=== PATIENT | male | born 1950 | race Caucasian/White ===

== ENCOUNTER → 2021-02-10 09:31 | Outpatient (CLI) | payer MEDICARE, SELFPAY ==
[2021-02-10 10:09] LABS: Basophils # 0.1 K/mm3 (0-0.2); Basophils % 1.2 % (0.1-2.0); Eosinophils # 0.3 K/mm3 (0.0-0.4); Eosinophils % 3.1 % (0.1-12.0); Hematocrit 41.9 % (42.0-52.0); Hemoglobin 14.3 g/dL (14.1-18.0); Lymphocytes # 2.5 K/mm3 (0.7-4.5); Mean Corpuscular HGB Conc 34.2 g/dL (31.8-35.4); Mean Corpuscular Hemoglobin 31.5 pg (27.0-31.2); Mean Corpuscular Volume 92.2 fl (80-94); Mean Platelet Volume 7.5 fl (7.4-10.4); Monocytes # 0.6 K/mm3 (0.1-1.0); Monocytes % 6.2 % (1.7-9.3); Neutrophils % 63.5 % (37.0-80.0); Platelet Count 275 K/mm3 (142-424); Red Blood Count 4.54 M/mm3 (4.60-6.20); Red Cell Distribution Width 13.6 % (11.5-17.5); White Blood Count 9.5 K/mm3 (4.8-10.8)
[2021-02-10 10:35] LABS: Alanine Aminotransferase 35 U/L (12-78); Albumin Level 4.2 g/dl (3.5-5.0); Albumin/Globulin Ratio 1.4 (1.1-1.8); Alkaline Phosphatase 65 U/L (38-126); Anion Gap 14.5 mEq/L (5-15); Aspartate Amino Transferase 27 U/L (17-59); Bilirubin,Total 0.6 mg/dl (0.2-1.3); Blood Urea Nitrogen 24 mg/dl (9-20); Calcium 9.4 mg/dl (8.4-10.2); Carbon Dioxide 28 mmol/L (22.0-30.0); Chloride 102 mmol/L (98-107); Chol/HDL Ratio 4.2 (1-3.5); Cholesterol 207 mg/dl (140-200); Estimated Glomerular Filt Rate 96 ml/min (>60); GFR (African American) 116 ML/MIN (>60); Globulin 2.9 g/dL (1.3-3.2); Glucose 126 mg/dl (74-100); HDL Cholesterol 49 mg/dl (40-60); Potassium 4.5 mmoL/L (3.5-5.1); Sodium 140 mmol/L (136-145); Total Protein,Serum 7.1 g/dl (6.3-8.2); Triglycerides 126 mg/dl (30-150); Uric Acid 8.1 mg/dl (3.5-8.5); VLDL Cholesterol 25 mg/dL (0-40)
[2021-02-10 10:44] LABS: Erythrocyte Sedimentation Rate 25 mm/hr (0-20)
[2021-02-10 10:46] LABS: C-Reactive Protein 12.5 mg/L (0-4)
[2021-02-10 11:06] LABS: Prostate Specific Ag Screen 0.4 ng/ml (0.0-4.0)
== END ==
PROVIDERS: Visit Provider Internal Medicine Adolescent Medicine
DX: Z00.00 Encounter for general adult medical examination without abnormal findings (principal); E78.00 Pure hypercholesterolemia, unspecified; L03.032 Cellulitis of left toe; R73.09 Other abnormal glucose; Z12.5 Encounter for screening for malignant neoplasm of prostate
CPT/HCPCS: 36415; 80053; 80061; 83036; 84550; 85025; 85651; 86140; G0103

== ENCOUNTER → 2021-02-14 13:50 | Outpatient (CLI) | payer MEDICARE, SELFPAY ==
[2021-02-14 14:06] LABS: Basophils # 0.1 K/mm3 (0-0.2); Basophils % 0.6 % (0.1-2.0); Eosinophils # 0.3 K/mm3 (0.0-0.4); Eosinophils % 2.3 % (0.1-12.0); Hematocrit 42.2 % (42.0-52.0); Hemoglobin 14.6 g/dL (14.1-18.0); Lymphocytes # 2.1 K/mm3 (0.7-4.5); Lymphocytes % 19.1 % (10-50); Mean Corpuscular HGB Conc 34.7 g/dL (31.8-35.4); Mean Corpuscular Hemoglobin 32.4 pg (27.0-31.2); Mean Corpuscular Volume 93.4 fl (80-94); Mean Platelet Volume 7.4 fl (7.4-10.4); Monocytes # 0.7 K/mm3 (0.1-1.0); Monocytes % 6.4 % (1.7-9.3); Neutrophils % 71.6 % (37.0-80.0); Platelet Count 295 K/mm3 (142-424); Red Blood Count 4.52 M/mm3 (4.60-6.20); Red Cell Distribution Width 13.5 % (11.5-17.5); White Blood Count 11.2 K/mm3 (4.8-10.8)
[2021-02-14 14:45] LABS: Chloride 102 mmol/L (98-107); Sodium 140 mmol/L (136-145)
[2021-02-14 14:46] LABS: Potassium 4.4 mmoL/L (3.5-5.1)
[2021-02-14 14:49] LABS: Anion Gap 16.4 mEq/L (5-15); Calcium 9.5 mg/dl (8.4-10.2); Carbon Dioxide 26 mmol/L (22.0-30.0); Glucose 116 mg/dl (74-100)
[2021-02-14 14:54] LABS: Blood Urea Nitrogen 26 mg/dl (9-20); Estimated Glomerular Filt Rate 74 ml/min (>60); GFR (African American) 90 ML/MIN (>60)
== END ==
PROVIDERS: Visit Provider Urology
DX: I10 Essential (primary) hypertension (principal); K21.9 Gastro-esophageal reflux disease without esophagitis; L81.9 Disorder of pigmentation, unspecified; M79.675 Pain in left toe(s); M79.89 Other specified soft tissue disorders; R00.0 Tachycardia, unspecified; R22.41 Localized swelling, mass and lump, right lower limb; R94.31 Abnormal electrocardiogram [ECG] [EKG]; Z01.812 Encounter for preprocedural laboratory examination; Z20.822 Contact with and (suspected) exposure to COVID-19
CPT/HCPCS: 36415; 80048; 85025; U0003

== ENCOUNTER 2021-02-16 08:18 | Day surgery (SDC) | payer MEDICARE, SELFPAY ==
[2021-02-16] VITALS (11 sets, daily range): BP systolic 82–152; BP diastolic 45–88; PULSE 88–107; RESP 18–20; TEMP 36.7; O2SAT 91–100; BMI 37.2
--- NOTE | 2021-02-16 07:12 | IR_ITS ---
APPROVED REPORT Patient Location: Outpatient PROCEDURES Catheter placed in the left external iliac artery Left external iliac artery angiogram with unilateral runoff to the left foot Catheter placed in the distal abdominal aorta Distal abdominal aortogram Catheter placement in the thoracic aorta Thoracic aortogram INDICATION Simi claudication class V, Peripheral artery disease, Embolic event to the left foot Informed consent was obtained prior to the procedure. COMPLICATIONS NONE Estimated Blood Loss: LESS THAN 10 ML TECHNIQUE 1% lidocaine used anesthetize right anterior aspect of the right wrist. The right radial artery was accessed via the Salinger technique and a 6 Albanian hydrophilic sheath was placed in the right radial artery. An arterial cocktail using nitroglycerin verapamil and heparin was administered. Initially a JR4 catheter was placed in the transverse aorta and an advantage wire was advanced into the abdominal aorta. The wire was then advanced into the left external iliac artery and the catheter was advanced. Unilateral runoff was performed. The catheter was then pulled back to the distal abdominal aorta and abdominal angiography was performed. Due to the tortuosity was brought back to the thoracic aorta and thoracic aortography was performed. At the end the procedure the apparatus was removed the patient was transferred to the postop holding in stable condition for sheath removal ANGIOGRAPHIC RESULTS The thoracic aorta is tortuous but normal in nonaneurysmal The SMA is patent The CONSUELO is patent Celiac artery is patent The bilateral renal arteries are patent The infrarenal abdominal aorta is moderately tortuous with no evidence of atherosclerosis The bilateral common iliac arteries are normal The bilateral external iliac arteries are normal The bilateral internal iliac arteries are patent The left common femoral artery is normal The left profunda femoris artery is normal Left superficial femoral artery and left popliteal artery are widely patent The anterior tibialis artery and posterior tibialis artery are widely patent with no evidence of atherosclerosis IMPRESSION No evidence of atherosclerotic plaque or aneurysmal dilatation Tortuosity in the infrarenal abdominal aorta which is clinically insignificant at this time PLAN 1. Continue medical management Electronically signed by : Juve Velasco, 02/16/2021 12:41:50
== END 2021-02-16 13:52 | disposition home or self-care (01) ==
LOC: CATHLAB 08:19
PROVIDERS: PCP Internal Medicine Adolescent Medicine; Visit Provider Internal Medicine
DX: L81.9 Disorder of pigmentation, unspecified (principal); M79.675 Pain in left toe(s); M79.89 Other specified soft tissue disorders; R22.41 Localized swelling, mass and lump, right lower limb; I10 Essential (primary) hypertension; M79.671 Pain in right foot; M79.672 Pain in left foot
CPT/HCPCS: 36246; 75625; 75710; 99152; 99153; C1725; C1760; C1769; J1644; Q9966

== ENCOUNTER → 2021-03-01 06:41 | Outpatient (CLI) | payer MEDICARE, SELFPAY ==
--- NOTE | 2021-03-01 06:52 | CT_ITS ---
PROCEDURE: CT FOOT LT WO CON CLINICAL HISTORY: CELLULITIS OF 2ND TOE COMPARISON: XA CL BOLUS KAUR UNILAT AORTA from 02/16/2021 TECHNIQUE: Axial images obtained with sagittal and coronal reformats. All CT scans at the facility use one or more dose reduction, viz: automated exposure control, ma/kV adjustment per patient size (including targeted exams where dose is matched to indication, i.e. head), or iterative reconstruction technique. FINDINGS: Mild widespread osteoarthritic changes of the foot and ankle. Mild spurring involves the medial malleolus. Osteoarthritic change at the navicular cuneiform joint and at the tarsal metatarsal junction with subchondral cystic changes of the 2nd metatarsal tarsal joint. Severe osteoarthritic changes are present at the 1st MTP joint with prominent bony hypertrophy and periarticular calcifications. Prominent bony spurring is present at the distal aspect of the 1st metatarsal and at the distal metatarsal sesamoid region. There are osteoarthritic changes at the DIP joint of the 2nd toe. Soft tissue swelling is present at this region at the DIP joint and distally. There also appears to be some bony cortical erosive change involving the proximal aspect of the distal phalanx of the 2nd toe suspicious for osteomyelitis. No localized fluid collections are evident. IMPRESSION: 1. Soft tissue swelling with cortical erosive change involving the proximal aspect of the distal phalanx of the 2nd toe consistent with osteomyelitis and cellulitis. 2. Osteoarthritic changes as described above. Dictated by: Rick Greene MD 03/01/2021 14:38 Rick Greene MD in [facility] 03/01/2021 14:38
== END ==
PROVIDERS: PCP Internal Medicine Adolescent Medicine; Visit Provider Internal Medicine Adolescent Medicine
DX: L03.032 Cellulitis of left toe (principal)
CPT/HCPCS: 73700

== ENCOUNTER 2021-03-02 15:57 | Outpatient (CLI) | payer MEDICARE, SELFPAY ==
[2021-03-02 16:20] VITALS: BP 122/78; PULSE 68; RESP 20; TEMP 36.9; O2SAT 95
[2021-03-02 16:25] LABS: Chloride 105 mmol/L (98-107); Potassium 4.1 mmoL/L (3.5-5.1); Sodium 140 mmol/L (136-145)
[2021-03-02 16:28] LABS: Anion Gap 16.1 mEq/L (5-15); Blood Urea Nitrogen 27 mg/dl (9-20); Carbon Dioxide 23 mmol/L (22.0-30.0); Estimated Glomerular Filt Rate 60 ml/min (>60); GFR (African American) 73 ML/MIN (>60)
[2021-03-02 16:29] LABS: Calcium 9.7 mg/dl (8.4-10.2); Glucose 130 mg/dl (74-100)
[2021-03-02 16:47] LABS: Creatine Kinase 108 U/L (55-170)
[2021-03-02 16:59] VITALS: BP 116/82; PULSE 113; RESP 18
== END 2021-03-02 17:04 | disposition home or self-care (01) ==
LOC: INF 15:57
PROVIDERS: PCP Internal Medicine Adolescent Medicine; Visit Provider Internal Medicine Adolescent Medicine
DX: L03.032 Cellulitis of left toe (principal); M86.9 Osteomyelitis, unspecified
CPT/HCPCS: 80048; 82550; 96365; J0878

== ENCOUNTER 2021-03-03 07:43 | Outpatient (CLI) | payer MEDICARE, SELFPAY ==
[2021-03-03 09:20] VITALS: BP 113/75; PULSE 85; RESP 14; TEMP 36.8; O2SAT 96
== END 2021-03-03 09:20 | disposition home or self-care (01) ==
LOC: INF 07:45
PROVIDERS: PCP Internal Medicine Adolescent Medicine; Visit Provider Internal Medicine Adolescent Medicine
DX: L03.032 Cellulitis of left toe (principal)
CPT/HCPCS: 96365; G0463

== ENCOUNTER 2021-03-04 09:02 | Outpatient (CLI) | payer MEDICARE, SELFPAY | END 2021-03-04 10:00 | disposition home or self-care (01) | LOC: INF 09:02 | PROVIDERS: PCP Internal Medicine Adolescent Medicine; Visit Provider Internal Medicine Adolescent Medicine | DX: L03.032 Cellulitis of left toe (principal); M86.9 Osteomyelitis, unspecified | CPT/HCPCS: 96365; J0878 ==

== ENCOUNTER 2021-03-05 13:26 | Outpatient (CLI) | payer MEDICARE, SELFPAY ==
[2021-03-05 13:54] VITALS: BP 132/70; PULSE 103; RESP 18; O2SAT 94
--- NOTE | 2021-03-05 13:55 | PC.NURSE ---
1355-pt to local room to have picc line placed per андрейrn
[2021-03-05 14:21] VITALS: BMI 37.0
--- NOTE | 2021-03-05 14:22 | XR_ITS ---
PROCEDURE: XR CHEST PORTABLE PICC PLAC CLINICAL HISTORY: PICC line placement COMPARISON: No exams were available for comparison FINDINGS: Left upper extremity PICC line has been placed. The tip is in good position in the region of the superior vena cava. There are low lung volumes with cardiomegaly and mild right basilar atelectasis. No acute bony abnormalities. IMPRESSION: Left upper extremity PICC line tip in good position in the region of the superior vena cava. Dictated by: Rick Greene MD 03/05/2021 14:52 Rick Greene MD in [facility] 03/05/2021 14:52
--- NOTE | 2021-03-05 14:35 | PC.NURSE ---
1435- pt back to infusion;waiting for rad report on picc placement
--- NOTE | 2021-03-05 15:00 | PC.NURSE ---
1500-picc placement in good position per rad report
[2021-03-05 15:05] VITALS: BP 119/69; PULSE 85; RESP 18
== END 2021-03-05 15:05 | disposition home or self-care (01) ==
LOC: INF 13:26
PROVIDERS: Visit Provider Internal Medicine Adolescent Medicine
DX: L03.032 Cellulitis of left toe (principal); M86.9 Osteomyelitis, unspecified
CPT/HCPCS: 36569; 71045; 96365; C1751; J0878

== ENCOUNTER 2021-03-06 08:10 | Outpatient (CLI) | payer MEDICARE, SELFPAY ==
[2021-03-06 08:34] VITALS: BP 124/73; PULSE 103; RESP 18; O2SAT 95
[2021-03-06 09:30] VITALS: BP 135/79; PULSE 91; RESP 18
== END 2021-03-06 09:30 | disposition home or self-care (01) ==
LOC: INF 08:19
PROVIDERS: PCP Internal Medicine Adolescent Medicine; Visit Provider Internal Medicine Adolescent Medicine
DX: L03.032 Cellulitis of left toe (principal); M86.9 Osteomyelitis, unspecified
CPT/HCPCS: 96365; J0878

== ENCOUNTER 2021-03-07 08:05 | Outpatient (CLI) | payer MEDICARE, SELFPAY ==
[2021-03-07 08:20] VITALS: BP 126/68; PULSE 100; RESP 18; TEMP 36.3; O2SAT 93
[2021-03-07 09:05] VITALS: BP 109/67; PULSE 94; RESP 16
== END 2021-03-07 09:20 | disposition home or self-care (01) ==
LOC: INF 08:09
PROVIDERS: Visit Provider Internal Medicine Adolescent Medicine
DX: L03.032 Cellulitis of left toe (principal); M86.9 Osteomyelitis, unspecified
CPT/HCPCS: 96365; J0878

== ENCOUNTER 2021-03-08 08:10 | Outpatient (CLI) | payer MEDICARE, SELFPAY ==
[2021-03-08 08:40] VITALS: BP 122/73; PULSE 97; RESP 18; O2SAT 94
[2021-03-08 09:30] VITALS: BP 121/71; PULSE 89; RESP 18; TEMP 35.9
== END 2021-03-08 09:50 | disposition home or self-care (01) ==
LOC: INF 08:17
PROVIDERS: Visit Provider Internal Medicine Adolescent Medicine
DX: L03.032 Cellulitis of left toe (principal); M86.9 Osteomyelitis, unspecified
CPT/HCPCS: 96365; J0878

== ENCOUNTER 2021-03-09 08:10 | Outpatient (CLI) | payer MEDICARE, SELFPAY ==
[2021-03-09 08:36] VITALS: BMI 36.1
[2021-03-09 08:40] VITALS: BP 113/67; PULSE 96; RESP 17; TEMP 36.6; O2SAT 98
[2021-03-09 08:53] LABS: Chloride 105 mmol/L (98-107); Potassium 4.1 mmoL/L (3.5-5.1); Sodium 141 mmol/L (136-145)
[2021-03-09 08:56] LABS: Anion Gap 12.1 mEq/L (5-15); Blood Urea Nitrogen 18 mg/dl (9-20); Carbon Dioxide 28 mmol/L (22.0-30.0); Creatine Kinase 91 U/L (55-170); Creatinine Clearance Estimated 119 mL/min (50-200); Estimated Glomerular Filt Rate 74 ml/min (>60); GFR (African American) 90 ML/MIN (>60)
[2021-03-09 08:57] LABS: Calcium 9.2 mg/dl (8.4-10.2); Glucose 138 mg/dl (74-100)
[2021-03-09 09:45] VITALS: BP 127/70; PULSE 78; RESP 17; TEMP 36.6; O2SAT 98
== END 2021-03-09 10:05 | disposition home or self-care (01) ==
LOC: INF 08:21
PROVIDERS: Visit Provider Internal Medicine Adolescent Medicine
DX: L03.032 Cellulitis of left toe (principal); M86.9 Osteomyelitis, unspecified
CPT/HCPCS: 80048; 82550; 96365; J0878

== ENCOUNTER 2021-03-10 08:29 | Outpatient (CLI) | payer MEDICARE, SELFPAY ==
[2021-03-10 08:49] VITALS: BP 115/70; PULSE 101; RESP 20; O2SAT 95; BMI 68.2
== END 2021-03-10 09:21 | disposition home or self-care (01) ==
PROVIDERS: PCP Internal Medicine Adolescent Medicine; Visit Provider Internal Medicine Adolescent Medicine
DX: L03.032 Cellulitis of left toe (principal); M86.9 Osteomyelitis, unspecified
CPT/HCPCS: 96365; J0878

== ENCOUNTER 2021-03-11 08:24 | Outpatient (CLI) | payer MEDICARE, SELFPAY ==
[2021-03-11 08:34] VITALS: BP 114/70; PULSE 95; RESP 18; O2SAT 95; BMI 68.2
== END 2021-03-11 09:12 | disposition home or self-care (01) ==
PROVIDERS: PCP Internal Medicine Adolescent Medicine; Visit Provider Internal Medicine Adolescent Medicine
DX: L03.032 Cellulitis of left toe (principal); M86.9 Osteomyelitis, unspecified
CPT/HCPCS: 96365; J0878

== ENCOUNTER 2021-03-12 10:03 | Outpatient (CLI) | payer MEDICARE, SELFPAY ==
[2021-03-12 10:11] VITALS: BP 119/67; PULSE 103; RESP 20; TEMP 36.6; O2SAT 96
[2021-03-12 11:07] VITALS: BP 115/69; PULSE 97; RESP 20; O2SAT 97
== END 2021-03-12 11:08 | disposition home or self-care (01) ==
LOC: INF 10:03
PROVIDERS: Visit Provider Internal Medicine Adolescent Medicine
DX: L03.032 Cellulitis of left toe (principal); M86.9 Osteomyelitis, unspecified
CPT/HCPCS: 96365; J0878

== ENCOUNTER 2021-03-13 08:05 | Outpatient (CLI) | payer MEDICARE, SELFPAY ==
[2021-03-13 08:20] VITALS: BP 123/95; PULSE 92; RESP 18; TEMP 36.3; O2SAT 94
[2021-03-13 09:25] VITALS: BP 122/72; PULSE 95; RESP 18; TEMP 36.2; O2SAT 94
== END 2021-03-13 09:25 | disposition home or self-care (01) ==
LOC: INF 08:12
PROVIDERS: Visit Provider Internal Medicine Adolescent Medicine
DX: L03.032 Cellulitis of left toe (principal); M86.9 Osteomyelitis, unspecified
CPT/HCPCS: 96365; J0878

== ENCOUNTER 2021-03-14 08:10 | Outpatient (CLI) | payer MEDICARE, SELFPAY ==
[2021-03-14 08:23] VITALS: BP 124/70; PULSE 101; RESP 18; TEMP 36.2; O2SAT 95
[2021-03-14 09:27] VITALS: BP 123/83; PULSE 95; RESP 18
== END 2021-03-14 09:27 | disposition home or self-care (01) ==
LOC: INF 08:16
PROVIDERS: Visit Provider Podiatrist
DX: L03.032 Cellulitis of left toe (principal); M86.9 Osteomyelitis, unspecified
CPT/HCPCS: 96365; J0878

== ENCOUNTER 2021-03-15 08:16 | Outpatient (CLI) | payer MEDICARE, SELFPAY ==
[2021-03-15 08:21] VITALS: BP 136/82; PULSE 89; RESP 18; TEMP 36.4; O2SAT 96
[2021-03-15 09:25] VITALS: BP 126/73; PULSE 85; RESP 16; TEMP 36.4; O2SAT 96
== END 2021-03-15 09:25 | disposition home or self-care (01) ==
LOC: INF 08:16
PROVIDERS: Visit Provider Internal Medicine Adolescent Medicine
DX: L03.032 Cellulitis of left toe (principal); M86.9 Osteomyelitis, unspecified
CPT/HCPCS: 96365; J0878

== ENCOUNTER 2021-03-16 08:10 | Outpatient (CLI) | payer MEDICARE, SELFPAY ==
[2021-03-16 08:31] VITALS: BMI 37.0
[2021-03-16 08:40] VITALS: BP 116/67; PULSE 93; RESP 17; TEMP 36.6; O2SAT 96
[2021-03-16 08:45] LABS: Chloride 101 mmol/L (98-107); Potassium 3.7 mmoL/L (3.5-5.1); Sodium 137 mmol/L (136-145)
[2021-03-16 08:48] LABS: Blood Urea Nitrogen 14 mg/dl (9-20); Creatine Kinase 1322 U/L (55-170); Creatinine Clearance Estimated 119 mL/min (50-200); Estimated Glomerular Filt Rate 74 ml/min (>60); GFR (African American) 90 ML/MIN (>60)
[2021-03-16 08:49] LABS: Anion Gap 10.7 mEq/L (5-15); Calcium 8.8 mg/dl (8.4-10.2); Carbon Dioxide 29 mmol/L (22.0-30.0); Glucose 228 mg/dl (74-100)
[2021-03-16 10:02] VITALS: BP 124/73; PULSE 89; RESP 17; TEMP 36.4; O2SAT 98
--- NOTE | 2021-03-16 12:33 | PC.NURSE ---
noticed extremely elevated CPK on lab reports. called and reported the result to Dr. Stacy's nurse and faxed the report to the office as requested.
== END 2021-03-16 10:05 | disposition home or self-care (01) ==
LOC: INF 08:22
PROVIDERS: Visit Provider Internal Medicine Adolescent Medicine
DX: L03.032 Cellulitis of left toe (principal); M86.9 Osteomyelitis, unspecified
CPT/HCPCS: 80048; 82550; 96365; J0878

== ENCOUNTER 2021-03-17 08:31 | Outpatient (CLI) | payer MEDICARE, SELFPAY ==
--- NOTE | 2021-03-17 08:38 | PC.NURSE ---
arrive approx 0835
[2021-03-17 08:56] VITALS: BP 105/57; PULSE 82; RESP 18; TEMP 36.9; O2SAT 96
[2021-03-17 09:29] VITALS: BP 129/80; PULSE 101; RESP 18; TEMP 36.6; O2SAT 97
== END 2021-03-17 09:33 | disposition home or self-care (01) ==
LOC: INF 08:32
PROVIDERS: PCP Internal Medicine Adolescent Medicine; Visit Provider Internal Medicine Adolescent Medicine
DX: L03.032 Cellulitis of left toe (principal); M86.9 Osteomyelitis, unspecified
CPT/HCPCS: 96365; J0878

== ENCOUNTER 2021-03-18 08:25 | Outpatient (CLI) | payer MEDICARE, SELFPAY ==
[2021-03-18 08:40] VITALS: BP 127/68; PULSE 98; RESP 20; TEMP 36.4; O2SAT 97
[2021-03-18 09:06] LABS: Blood Urea Nitrogen 21 mg/dl (9-20); Calcium 8.7 mg/dl (8.4-10.2); Carbon Dioxide 28 mmol/L (22.0-30.0); Chloride 102 mmol/L (98-107); Creatine Kinase 1320 U/L (55-170); Estimated Glomerular Filt Rate 84 ml/min (>60); GFR (African American) 101 ML/MIN (>60); Glucose 188 mg/dl (74-100); Sodium 138 mmol/L (136-145)
[2021-03-18 09:15] LABS: Anion Gap 11.8 mEq/L (5-15); Potassium 3.8 mmoL/L (3.5-5.1)
--- NOTE | 2021-03-18 09:45 | PC.NURSE ---
0840 Notified by Ana Paula Alegre that pt CPK was elevated on 03/16. Roel to check with Dr Dumont if he wishes to proceed with infusion. CPK/CMP drawn at this time as well. 0920 ok to proceed with infusion per Ana Paula Alegre and Dr Dumont.
== END 2021-03-18 10:18 | disposition home or self-care (01) ==
PROVIDERS: PCP Internal Medicine Adolescent Medicine; Visit Provider Internal Medicine Adolescent Medicine
DX: L03.032 Cellulitis of left toe (principal); M86.9 Osteomyelitis, unspecified
CPT/HCPCS: 80048; 82550; 96365; J0878

== ENCOUNTER 2021-03-19 08:10 | Outpatient (CLI) | payer MEDICARE, SELFPAY ==
[2021-03-19 08:47] VITALS: BP 139/91; PULSE 99; RESP 18; O2SAT 95
[2021-03-19 09:45] VITALS: BP 128/72; PULSE 99; RESP 18
== END 2021-03-19 09:45 | disposition home or self-care (01) ==
LOC: INF 08:20
PROVIDERS: Visit Provider Internal Medicine Adolescent Medicine
DX: L03.032 Cellulitis of left toe (principal); M86.9 Osteomyelitis, unspecified
CPT/HCPCS: 96365; J0878

== ENCOUNTER 2021-03-20 14:15 | Outpatient (CLI) | payer MEDICARE, SELFPAY ==
[2021-03-20 14:18] VITALS: BMI 37.0
[2021-03-20 14:37] LABS: Anion Gap 12.3 mEq/L (5-15); Blood Urea Nitrogen 17 mg/dl (9-20); Calcium 8.9 mg/dl (8.4-10.2); Carbon Dioxide 28 mmol/L (22.0-30.0); Chloride 102 mmol/L (98-107); Creatine Kinase 999 U/L (55-170); Creatinine Clearance Estimated 119 mL/min (50-200); Estimated Glomerular Filt Rate 84 ml/min (>60); GFR (African American) 101 ML/MIN (>60); Glucose 177 mg/dl (74-100); Potassium 4.3 mmoL/L (3.5-5.1); Sodium 138 mmol/L (136-145)
[2021-03-20 15:00] VITALS: BP 125/72; PULSE 107; RESP 18; O2SAT 95
[2021-03-20 15:55] VITALS: BP 132/75; PULSE 105; RESP 18
== END 2021-03-20 15:55 | disposition home or self-care (01) ==
LOC: INF 14:17
PROVIDERS: Visit Provider Internal Medicine Adolescent Medicine
DX: L03.032 Cellulitis of left toe (principal); M86.9 Osteomyelitis, unspecified
CPT/HCPCS: 80048; 82550; 96365; J0878

== ENCOUNTER 2021-03-21 08:10 | Outpatient (CLI) | payer MEDICARE, SELFPAY ==
[2021-03-21 08:26] VITALS: BP 136/71; PULSE 104; RESP 18; TEMP 36.1; O2SAT 94
[2021-03-21 15:40] VITALS: BP 136/72; PULSE 103; RESP 18; O2SAT 95
== END 2021-03-21 09:32 | disposition home or self-care (01) ==
LOC: INF 08:18
PROVIDERS: Visit Provider Internal Medicine Adolescent Medicine
DX: L03.032 Cellulitis of left toe (principal); M86.9 Osteomyelitis, unspecified
CPT/HCPCS: 96365; J0878

== ENCOUNTER 2021-03-22 08:19 | Outpatient (CLI) | payer MEDICARE, SELFPAY ==
[2021-03-22 08:41] VITALS: BP 138/62; PULSE 89; RESP 18; TEMP 36.6; O2SAT 95
[2021-03-22 09:30] VITALS: BP 128/72; PULSE 92; RESP 16; TEMP 36.6; O2SAT 95
== END 2021-03-22 09:40 | disposition home or self-care (01) ==
LOC: INF 08:19
PROVIDERS: Visit Provider Internal Medicine Adolescent Medicine
DX: L03.032 Cellulitis of left toe (principal); M86.9 Osteomyelitis, unspecified
CPT/HCPCS: 96365; J0878

== ENCOUNTER 2021-03-23 08:20 | Outpatient (CLI) | payer MEDICARE, SELFPAY ==
[2021-03-23 08:28] VITALS: BMI 37.0
[2021-03-23 08:50] LABS: Chloride 105 mmol/L (98-107); Potassium 4.1 mmoL/L (3.5-5.1); Sodium 140 mmol/L (136-145)
[2021-03-23 08:51] VITALS: BP 118/86; PULSE 103; RESP 17; TEMP 36.7; O2SAT 96
[2021-03-23 08:53] LABS: Anion Gap 11.1 mEq/L (5-15); Blood Urea Nitrogen 20 mg/dl (9-20); Calcium 9.1 mg/dl (8.4-10.2); Carbon Dioxide 28 mmol/L (22.0-30.0); Creatine Kinase 1106 U/L (55-170); Creatinine Clearance Estimated 119 mL/min (50-200); Estimated Glomerular Filt Rate 84 ml/min (>60); GFR (African American) 101 ML/MIN (>60); Glucose 148 mg/dl (74-100)
[2021-03-23 09:40] VITALS: BP 122/81; PULSE 91; RESP 17; TEMP 36.8; O2SAT 97
== END 2021-03-23 09:45 | disposition home or self-care (01) ==
LOC: INF 08:26
PROVIDERS: Visit Provider Internal Medicine Adolescent Medicine
DX: L03.032 Cellulitis of left toe (principal); M86.9 Osteomyelitis, unspecified
CPT/HCPCS: 80048; 82550; 96365; J0878

== ENCOUNTER 2021-03-24 08:21 | Outpatient (CLI) | payer MEDICARE, SELFPAY ==
[2021-03-24 08:43] VITALS: BP 118/78; PULSE 107; RESP 18; O2SAT 94
== END 2021-03-24 09:20 | disposition home or self-care (01) ==
LOC: INF 08:22
PROVIDERS: PCP Internal Medicine Adolescent Medicine; Visit Provider Internal Medicine Adolescent Medicine
DX: L03.032 Cellulitis of left toe (principal); M86.9 Osteomyelitis, unspecified
CPT/HCPCS: 96365; J0878

== ENCOUNTER 2021-03-25 08:13 | Outpatient (CLI) | payer MEDICARE, SELFPAY ==
[2021-03-25 08:40] VITALS: BP 114/65; PULSE 98; RESP 18; O2SAT 95
[2021-03-25 08:44] VITALS: BMI 37.2
[2021-03-25 09:01] LABS: Chloride 104 mmol/L (98-107); Sodium 140 mmol/L (136-145)
[2021-03-25 09:04] LABS: Blood Urea Nitrogen 24 mg/dl (9-20); Calcium 9.3 mg/dl (8.4-10.2); Carbon Dioxide 28 mmol/L (22.0-30.0); Creatine Kinase 1032 U/L (55-170); Creatinine Clearance Estimated 85 mL/min (50-200); Estimated Glomerular Filt Rate 84 ml/min (>60); GFR (African American) 101 ML/MIN (>60); Glucose 178 mg/dl (74-100)
== END 2021-03-25 09:22 | disposition home or self-care (01) ==
LOC: INF 08:14
PROVIDERS: PCP Internal Medicine Adolescent Medicine; Visit Provider Internal Medicine Adolescent Medicine
DX: L03.032 Cellulitis of left toe (principal); M86.9 Osteomyelitis, unspecified
CPT/HCPCS: 80048; 82550; 96365; J0878

== ENCOUNTER 2021-03-26 08:20 | Outpatient (CLI) | payer MEDICARE, SELFPAY ==
[2021-03-26 08:50] VITALS: BP 137/78; PULSE 98; RESP 18; TEMP 36.3; O2SAT 96
[2021-03-26 09:55] VITALS: BP 140/73; PULSE 97; RESP 18
== END 2021-03-26 09:55 | disposition home or self-care (01) ==
LOC: INF 08:20
PROVIDERS: Visit Provider Internal Medicine Adolescent Medicine
DX: L03.032 Cellulitis of left toe (principal); M86.9 Osteomyelitis, unspecified
CPT/HCPCS: 96365; J0878

== ENCOUNTER 2021-03-27 08:29 | Outpatient (CLI) | payer MEDICARE, SELFPAY ==
[2021-03-27 08:30] VITALS: BMI 37.0
[2021-03-27 08:46] VITALS: BP 130/93; PULSE 102; RESP 18; TEMP 36.7; O2SAT 96
[2021-03-27 08:56] LABS: Chloride 105 mmol/L (98-107); Sodium 141 mmol/L (136-145)
[2021-03-27 08:59] LABS: Blood Urea Nitrogen 21 mg/dl (9-20); Carbon Dioxide 28 mmol/L (22.0-30.0); Creatine Kinase 920 U/L (55-170); Creatinine Clearance Estimated 119 mL/min (50-200); Estimated Glomerular Filt Rate 84 ml/min (>60); GFR (African American) 101 ML/MIN (>60)
[2021-03-27 09:00] LABS: Calcium 9.3 mg/dl (8.4-10.2); Glucose 164 mg/dl (74-100)
[2021-03-27 09:38] VITALS: BP 119/63; PULSE 93; RESP 18; O2SAT 97
== END 2021-03-27 09:38 | disposition home or self-care (01) ==
LOC: INF 08:29
PROVIDERS: Visit Provider Internal Medicine Adolescent Medicine
DX: L03.032 Cellulitis of left toe (principal); M86.9 Osteomyelitis, unspecified
CPT/HCPCS: 80048; 82550; 96365; J0878

== ENCOUNTER 2021-03-28 08:33 | Outpatient (CLI) | payer MEDICARE, SELFPAY ==
[2021-03-28 08:33] VITALS: BP 133/60; PULSE 103; RESP 18; TEMP 36.1; O2SAT 96
[2021-03-28 09:33] VITALS: BP 116/74; PULSE 98; RESP 18
== END 2021-03-28 09:33 | disposition home or self-care (01) ==
LOC: INF 08:40
PROVIDERS: Visit Provider Internal Medicine Adolescent Medicine
DX: L03.032 Cellulitis of left toe (principal); M86.9 Osteomyelitis, unspecified
CPT/HCPCS: 96365; J0878

== ENCOUNTER 2021-03-29 08:15 | Outpatient (CLI) | payer MEDICARE, SELFPAY ==
[2021-03-29 08:24] VITALS: BMI 37.0
[2021-03-29 08:45] VITALS: BP 127/78; PULSE 97; RESP 18; O2SAT 93
[2021-03-29 09:02] LABS: Chloride 104 mmol/L (98-107); Potassium 4.1 mmoL/L (3.5-5.1); Sodium 141 mmol/L (136-145)
[2021-03-29 09:05] LABS: Anion Gap 13.1 mEq/L (5-15); Blood Urea Nitrogen 19 mg/dl (9-20); Calcium 9.1 mg/dl (8.4-10.2); Carbon Dioxide 28 mmol/L (22.0-30.0); Creatine Kinase 1238 U/L (55-170); Creatinine Clearance Estimated 119 mL/min (50-200); Estimated Glomerular Filt Rate 84 ml/min (>60); GFR (African American) 101 ML/MIN (>60); Glucose 145 mg/dl (74-100)
[2021-03-29 09:20] VITALS: BP 110/74; PULSE 93; RESP 16
== END 2021-03-29 09:45 | disposition home or self-care (01) ==
LOC: INF 08:20
PROVIDERS: Visit Provider Internal Medicine Adolescent Medicine
DX: L03.032 Cellulitis of left toe (principal); M86.9 Osteomyelitis, unspecified
CPT/HCPCS: 80048; 82550; 96365; G0463; J0878

== ENCOUNTER → 2023-07-29 23:00 | Outpatient (CLI) | payer MEDICARE, SELFPAY | PROVIDERS: PCP Student in an Organized Health Care Education/Training Program; Visit Provider Student in an Organized Health Care Education/Training Program | DX: R05.9 Cough, unspecified (principal) | CPT/HCPCS: 87635 ==

== ENCOUNTER 2023-12-23 10:38 | Outpatient (CLI) | payer MEDICARE, SELFPAY ==
--- NOTE | 2023-12-23 10:44 | XR_ITS ---
FINAL REPORT CLINICAL HISTORY: RT KNEE PAIN,SWELLING COMPARISON: None FINDINGS: RIGHT KNEE 3 views of the right knee were obtained. There is no acute fracture or dislocation. There is severe tricompartmental osteoarthritic disease. There is a large joint effusion. Soft tissues are unremarkable. IMPRESSION: Large joint effusion and degenerative change without acute bony abnormality. Reviewed, Interpreted and Dictated by Denzel Lange MD Transcribed by Amanda Rojas Authenticated and [facility]
== END 2023-12-23 23:59 | disposition home or self-care (01) ==
LOC: RAD 10:39
PROVIDERS: PCP Internal Medicine Adolescent Medicine; Visit Provider Nurse Practitioner Family
DX: M25.561 Pain in right knee (principal); M25.461 Effusion, right knee; G89.29 Other chronic pain
CPT/HCPCS: 73562

== ENCOUNTER 2024-09-08 09:28 | Outpatient (CLI) | payer MEDICARE, SELFPAY ==
--- NOTE | 2024-09-08 09:33 | XR_ITS ---
FINAL REPORT CLINICAL HISTORY: Rt Knee Pain..no trauma COMPARISON: None FINDINGS: RIGHT KNEE: 3 views of the right knee demonstrate no acute fracture or dislocation. There is severe tricompartment degenerative change present, with multiple joint bodies. The largest joint body is in the lateral portion of the knee, measuring up to 23 mm in size. A large joint effusion is present. IMPRESSION: Severe degenerative change as described, without acute bony abnormality. Reviewed, Interpreted and Dictated by Denzel Lange MD Transcribed by Amanda Hernandez Authenticated and [facility]
== END 2024-09-08 23:59 | disposition home or self-care (01) ==
LOC: RAD 09:29
PROVIDERS: PCP Internal Medicine Adolescent Medicine; Visit Provider Physician Assistant
DX: M25.561 Pain in right knee (principal)
CPT/HCPCS: 73562

== ENCOUNTER 2024-09-23 09:00 | Outpatient (RCR) | payer MEDICARE, SELFPAY ==
--- NOTE | 2024-09-14 17:22 | HMH.PTOPEV ---
PT Outpatient Evaluation Rehab PT Outpatient Evaluation Start: 09/14/24 16:32 Freq: Status: Active Protocol: Document 09/14/24 16:32 KACI (Rec: 09/14/24 17:21 KACI [id number]) E-signed By Ronald Murphy, PT Outpatient Therapy Subjective History Subjective History Patient is a 74 year old male presenting to outpatient PT with reports of chronic R knee pain. Symptoms of insidious onset starting approx 5 years ago. Most recent imaging indicates severe degenerative changes of the R knee. Main complaint is decreased RLE mobility. Other comorbidities include hx of diabetes and HTN. Other comorbidities include hx of diabetes and HTN. New diagnosis of cancer in past 12 No months? Chief Complaint Pain,Stiff,Clicks,Gives out/ Unstable Symptom Type Ache Symptoms Relieved By Rest/Positioning Symptoms Aggravated By Standing,Bending/Stooping, Physical Activity Prior Functional Limitations None Current Functional Limitations Housework,Standing,Walking, Stairs Symptom Description Intermittent Level of pain today (0-10) 0 Pain scale - at its best (0-10) 0 Pain scale - at its worst (0-10) 5 Hip/Knee Eval Gait Observation General Gait Pattern Observation Antalgic Gait,Decrease Stride Lngth (R) Palpation Tenderness right Knee Palpation Finding Tenderness Knee Palpation Overall Comment MJL 2/4 MMT Hip Flexion Strength Grade 4 Good Hip Abduction Strength Grade 4- Good- Hip Adduction Strength Grade 4- Good- Hip Extension Strength Grade 4- Good- Hip External Rotation Strength Grade 4 Good Hip Internal Rotation Strength Grade 4 Good Knee Extension Strength Grade 4 Good Knee Flexion Strength Grade 5 Normal ROM Hip ROM Reason Not Measured Within Functional Limits Knee Extension Active Range of Motion ( -14 degrees) Knee Flexion Active Range of Motion ( WNL degrees) Special Tests Knee Anterior Carlos A Test Negative Right Knee Pivot Shift Test Negative Right Knee Valgus Stress Test Negative Right Knee Varus Stress Test Negative Right Knee Lola Test Positive Right Lower Extremity Functional Index Activities Today, do you or would you have any difficulty at all with: a.Any of your usual work, housework or Moderate difficulty school activities b. Your usual hobbies, recreational or Moderate difficulty sporting activities c. Getting into or out of the bath Extreme difficulty or unable to perform activity d. Walking between rooms Extreme difficulty or unable to perform activity e. Putting on your shoes or socks Quite a bit of difficulty f. Squatting Moderate difficulty g. Lifting an object, like a bag of Extreme difficulty or unable groceries from the floor to perform activity h. Performing light activities around Quite a bit of difficulty your home i. Performing heavy activities around Quite a bit of difficulty your home j. Getting into or out of a car Quite a bit of difficulty k. Walking 2 blocks A little bit of difficulty l. Walking a mile No difficulty m. Going up or down 10 stairs (about 1 A little bit of difficulty flight of stairs) n. Standing for 1 hour No difficulty o. Sitting for 1 hour Quite a bit of difficulty p. Running on even ground No difficulty q. Running on uneven ground No difficulty r. Making sharp turns while running fast A little bit of difficulty s. Hopping Moderate difficulty t. Rolling over in bed Quite a bit of difficulty LEFI Score Lower Extremity Functional Index Score 39 Outpatient Therapy Assessment Impairments Problems/Impairmments Palpation Tenderness,Impaired Range of Motion,Impaired Strength,Impaired Walking, Impaired Standing,Impaired Sitting,Impaired Household Care,Impaired Stair Climbing, Impaired Incline Stepping, Impaired Stepping on Uneven Surface,Impaired Squatting, Impaired Recreational Activities,Impaired Work Activities,Subjective C/O Pain Prognosis Rehab Potential Good Clinical Impression Consistent with Diagnosis Yes Short Term Goals Number of Weeks 2 Decrease Subjective C/O Pain Yes: 11/01 at worst Patient to be Ind w/ HEP Yes Alf Goals Number of Weeks 4-6 Decreased Palpation Tenderness Yes: 1/ Increase Range of Motion Yes: WNL Increase Strength Yes: 5/5 RLE Increase Ability to Walk Yes: 30 min without difficulty Increase Ability to Stand Yes: Improve Ability For Household Care Yes Improve Ability to Climb Stairs Yes: 1 flight up/down without difficulty Improve LEFI Score Yes: >60 Decrease Subjective C/O Pain Yes: 110 at worst Outpatient Therapy Plan of Care Treatment Plan May Include Therapeutic Exercise Including Home Yes Exercise Program Manual Therapy Techniques Yes Neuromuscular Re-education Yes Therapeutic Activities to Return to Yes Previous Functional/Work Level Gait Training Yes ADL/Self Care Education Yes Dry Needling Yes Thermal Modalities Yes Electrical Stimulation Yes Ultrasound/Phonophoresis Yes Iontophoresis Yes Orthotics/Bracing/Splinting Yes Vasopneumatic Compression Pump Yes Massage Yes Eval/Re-Eval Yes Frequency Times per week 2-3 Duration Number of Weeks 4-6 Addendums This patient is a candidate for social No or vocational rehab? Patient/Guardian verbally acknowledges Yes understanding of treatment program and consents to further treatment? Patient/Guardian verbally acknowledges Yes understanding of diagnosis, prognosis and goals for treatment? Eval Complexity PT Charges 71792 - Moderate Complexity Shoulder/Elbow Eval Shoulder Objective Measurements Elbow Objective Measurements PHYSICIAN CERTIFICATION: I certify the specified therapy services for Sridhar Acosta are required, authorized, and reviewed every 30 days.
== END 2024-09-23 23:59 | disposition home or self-care (01) ==
LOC: PT 09:00
PROVIDERS: Visit Provider Physician Assistant
DX: M25.561 Pain in right knee (principal)
CPT/HCPCS: 97110; 97163; 97530

== ENCOUNTER 2024-10-07 09:00 | Outpatient (RCR) | payer MEDICARE, SELFPAY | END 2024-10-07 23:59 | disposition home or self-care (01) | LOC: PT 09:00 | PROVIDERS: Visit Provider Physician Assistant | DX: M25.561 Pain in right knee (principal) | CPT/HCPCS: 97110; 97530 ==

== ENCOUNTER 2024-11-17 08:00 | Outpatient (RCR) | payer MEDICARE, SELFPAY ==
--- NOTE | 2024-11-02 11:25 | HMH.RHREAS ---
Rehab Reassessment Rehab OP Re-assessment Start: 11/02/24 09:10 Freq: Status: Active Protocol: Document 11/02/24 11:04 PHORTERRANCE (Rec: 11/02/24 11:25 PHORNE [id number]) E-signed By Yoel Laam, PT Lower Extremity Functional Index Activities Today, do you or would you have any difficulty at all with: a.Any of your usual work, housework or Moderate difficulty school activities b. Your usual hobbies, recreational or Quite a bit of difficulty sporting activities c. Getting into or out of the bath No difficulty d. Walking between rooms No difficulty e. Putting on your shoes or socks No difficulty f. Squatting Moderate difficulty g. Lifting an object, like a bag of No difficulty groceries from the floor h. Performing light activities around A little bit of difficulty your home i. Performing heavy activities around A little bit of difficulty your home j. Getting into or out of a car No difficulty k. Walking 2 blocks Moderate difficulty l. Walking a mile Quite a bit of difficulty m. Going up or down 10 stairs (about 1 A little bit of difficulty flight of stairs) n. Standing for 1 hour Quite a bit of difficulty o. Sitting for 1 hour No difficulty p. Running on even ground Moderate difficulty q. Running on uneven ground Moderate difficulty r. Making sharp turns while running fast Moderate difficulty s. Hopping A little bit of difficulty t. Rolling over in bed Quite a bit of difficulty LEFI Score Lower Extremity Functional Index Score 52 Rehab Re-assessment Subjective Subjective Pt reports he has not been able to attend PT in 25 days due to having the flu and then having difficulty getting back on the schedule. I can definitely tell a difference in the pain from not being here and working out. He reports pain at worst in the R knee is 4/10. Objective Objective Notes Pain: R knee at worst 4/10. MMT R LE: HIP FLEX 4+/5, HIP ABD 4+/5, HIP ER 4+/5, HIP IR 4+/5, KNEE EXT 4+/5, KNEE FLEX 5/5. AROM R Knee: 6-130 deg. (Pt reports prior injury has prevented full R knee extension for many years) TTP: R knee 0/4 LEFS: 39 on IE vs 52 this date . Assessment Progress Assessment Progressing as Expected Assessment Notes Pt has shown significant improvements in R knee strength, ROM, and pain. However, he continues to have difficulty with ascending/ descending stairs and needs to further increase R LE strength. Skilled therapy remains indicated to improve these identified deficits and aid pt return to PLOF. Patient goals met ST/2 LT/9 Plan Plan Continue per initial POC. Frequency of Therapy 2-3 x/wk Duration of therapy 4 wks Time and Billing Re-Eval Time 11 Re-Eval Billing Units 0 Charge for PT reassessment? No PHYSICIAN CERTIFICATION: I certify the specified therapy services for Sridhar Acosta are required, authorized, and reviewed every 30 days.
== END 2024-11-17 23:59 | disposition home or self-care (01) ==
LOC: PT 08:00
PROVIDERS: Visit Provider Physician Assistant
DX: M25.561 Pain in right knee (principal)
CPT/HCPCS: 97110; 97530

== ENCOUNTER 2024-12-07 08:00 | Outpatient (RCR) | payer MEDICARE, SELFPAY ==
--- NOTE | 2024-11-30 15:12 | HMH.RHREAS ---
Rehab Reassessment Rehab OP Re-assessment Start: 11/23/24 08:54 Freq: Status: Active Protocol: Document 11/30/24 15:03 PHORNE (Rec: 11/30/24 15:12 PHORNE [id number]) E-signed By Yoel Lama, PT Lower Extremity Functional Index Activities Today, do you or would you have any difficulty at all with: a.Any of your usual work, housework or A little bit of difficulty school activities b. Your usual hobbies, recreational or A little bit of difficulty sporting activities c. Getting into or out of the bath No difficulty d. Walking between rooms No difficulty e. Putting on your shoes or socks A little bit of difficulty f. Squatting Moderate difficulty g. Lifting an object, like a bag of No difficulty groceries from the floor h. Performing light activities around No difficulty your home i. Performing heavy activities around No difficulty your home j. Getting into or out of a car A little bit of difficulty k. Walking 2 blocks Moderate difficulty l. Walking a mile Moderate difficulty m. Going up or down 10 stairs (about 1 Moderate difficulty flight of stairs) n. Standing for 1 hour Quite a bit of difficulty o. Sitting for 1 hour No difficulty p. Running on even ground Quite a bit of difficulty q. Running on uneven ground Quite a bit of difficulty r. Making sharp turns while running fast Moderate difficulty s. Hopping A little bit of difficulty t. Rolling over in bed No difficulty LEFI Score Lower Extremity Functional Index Score 56 Rehab Re-assessment Subjective Subjective States he has never really had pain, just a discomfort, but it's much better now that he's back on a routine with PT and HEP. Is going on vacation to [place] next week and will be gone for a couple weeks. Reports that he will see how his vacation goes, keep up with HEP, and then decide if he needs to come back to continue PT. Objective Objective Notes Pain: R knee at worst 2-3/10. MMT R LE: HIP FLEX 4/5, HIP ABD 4+/5, HIP ER 4+/5, HIP IR 4+/5, KNEE EXT 5/5, KNEE FLEX 5/5. AROM R Knee: 3-130 deg. (Pt reports prior injury has prevented full R knee extension for many years) TTP: R knee 0/4 LEFS: 39 on IE vs 56 this date . Assessment Progress Assessment Progressing as Expected Assessment Notes Pt continues to show increased overall R LE strength, but has shown minimal changes in R knee AROM since previous reassessment. He continues to decrease pain at worst and continues to improve LEFS score on the R LE. Skilled therapy remains indicated to improve R LE strength in order to facilitate increased standing activities and improved ambulation. Patient goals met ST/2 LT/9 Plan Plan Continue per initial POC. Frequency of Therapy 1-2 x/wk Duration of therapy 2-3 wks Time and Billing Re-Eval Time 11 Re-Eval Billing Units 0 Charge for PT reassessment? No PHYSICIAN CERTIFICATION: I certify the specified therapy services for Sridhar Acosta are required, authorized, and reviewed every 30 days.
== END 2024-12-07 23:59 | disposition home or self-care (01) ==
LOC: PT 08:00
PROVIDERS: Visit Provider Physician Assistant
DX: M25.561 Pain in right knee (principal)
CPT/HCPCS: 97110; 97530

== ENCOUNTER 2025-04-28 12:43 | Outpatient (CLI) | payer MEDICARE, SELFPAY ==
--- OUTSIDE RECORDS SUMMARY | 2024-11-27 17:30 | XMS_ITS ---
Author Organization [facility] Address [address] [facility] [address] [place] [address] Care Team Providers Care Bakery Helper Name Role Phone Lacy Jimenez Primary Care Provider [phone] LACY Jimenez APRN Unavailable Unavailable Migration, Provider Unavailable Unavailable REASON FOR VISIT [facility] To [facility] Conversion Encounter Medications Medication SIG (Take, Route, Frequency, Duration) Notes Start Date End Date Status Doxycycline Monohydrate 100 MG 1 cap(s) orally 2 times a day; Duration: 7 days 10/15/2024 Active metFORMIN HCl ER (OSM) 500 MG 1 tab(s) orally at night; Duration: 90 days 01/27/2023 Active Centrum Men - 1 tab(s) orally once a day prn Active Lisinopril-hydroCHLOROthiaz loki 20-12.5 MG 1 tab(s) orally once a day; Duration: 90 days Active Atorvastatin Calcium 20 MG 1 tab(s) oral ly at night; Duration: 90 days 01/27/2023 Active Encounters Encounter Location Date Provider Diagnosis [facility] [address] [facility] [address] [place] [id number] 11/27/2024 Provider Migration Bronchitis J40 Assessments Encounter Date Diagnosis (ICD Code) Assessment Notes Treatment Notes Treatment Clinical Notes Section Notes 11/27/2024 Bronchitis (ICD-10 - J40) Plan Of Treatment Medication Medication Name Sig Start Date Stop Date Notes Doxycycline Monohydrate 100 MG 1 cap(s) orally 2 times a day; Duration: 7 days 10/15/2024 Next Appt Details Provider Name:Radha Conway ce, 05/09/2025 08:15:00 AM, [address], [address], [place], [address], Progress Notes * Lois ACOSTAOB:1950 (75 yo M)Acc No.[id number]:11/27/2024 Patient: Sridhar JONES Provider: Miles Caraballo :1950 A ge:74 Y S ex:Male Date:11/27/2024 Address:[place] [address], [place], [id number] Pcp:Lacy Jimenez Subjective: * Chief Complaints: * 1 . Multum To Medispan Conversion Encounter. * Medical History: * Medications: T aking Centrum Men - Tablet 1 tab(s) orally once a day , Notes to Pharmacist: prn, Taking Atorvastatin Calcium 20 MG Tablet 1 tab(s) orally at night , Taking Lisinopril-hydroCHLOROthiazide 20-12.5 MG Tablet 1 tab(s) orally once a day , Taking metFORMIN HCl ER (OSM) 500 MG Tablet Extended Release 24 Hour 1 tab(s) orally at night Objective: * Vitals: Assessment: * Assessment: 1. B deejay - Talita (Primary) Plan: * Treatment: * * Electronic signature of Prov ider Migration on 04/28/2025 at 12:45 PM EDT Sign off status: Pending * Provider: Miles german Migration Date: 0 11/27/2024 Generated for Candido brennan/Deonna/Jamarcus on: 0 04/28/2025 12:45 PM EDT
--- OUTSIDE RECORDS SUMMARY | 2025-03-29 04:15 | XMS_ITS ---
Author Organization [facility] Address [address] [place] [address] Care Team Providers Care Manager Strategy Name Role Phone Lacy Jimenez Primary Care Provider LACY Jimenez APRN Unavailable Unavailable Radha Yarbrough Unavailable [phone] Allergies No Known Allergies Results Component Value Reference Range Notes Microalbumin (In-House) Reviewed date:03/29/2025 04:56:42 PM Interpretation: Performing Lab: Notes/Report: ALB 80 mg/L CRE 200 mg/dL A:C 30-300 mg/g LIPID PANEL, STANDARD (7600) Reviewed date:04/01/2025 05:26:13 PM Interpretation: Performing Lab:[facility], [facility] [address] [facility], [place] [id number] Daniel Lozano Notes/Report: CHOLESTEROL, TOTAL 127 <200 mg/dL HDL CHOLESTEROL 43 > OR = 40 mg/dL TRIGLYCERIDES 136 <150 mg/dL LDL-CHOLESTEROL 62 Reference range: <100 Desirable range <100 mg/dL for primary prevention; <70 mg/dL for patients with CHD or diabetic patients with > or = 2 CHD risk factors. LDL-C is now calculated using the Yordan calculation, which is a validated novel method providing better accuracy than the Friedewald equation in the estimation of LDL-C. Ulices FRY et al. VERONICA. 2013;310(19): 4533-0506 (http://education.Aquacue/faq/REZ295) CHOL/HDLC RATIO 3.0 <5.0 (calc) NON HDL CHOLESTEROL 84 <130 mg/dL (calc) For patients with diabetes plus 1 major ASCVD risk factor, treating to a non-HDL-C goal of <100 mg/dL (LDL-C of <70 mg/dL) is considered a therapeutic option. COMPREHENSIVE METABOLIC PANE L (19861) Reviewed date:04/01/2025 05:26:13 PM Interpretation: Performing Lab:[facility]HA E [address] [facility], [id number] Daniel Lozano Notes/Report: GLUCOSE 244 65-99 mg/dL Fasting reference interval For someone without known diabetes, a glucose value >125 mg/dL indicates that they may have diabetes and this should be confirmed with a follow-up test. UREA NITROGEN (BUN) 19 7-25 mg/dL CREATININE 0.94 0.70-1.28 mg/dL EGFR 86 > OR = 60 mL/min/1.73m2 BUN/CREATININE RATIO SEE NOTE: 6-22 (calc) Not Reported: BUN and Creatinine are within reference range. SODIUM 136 135-146 mmol/L POTASSIUM 4.1 3.5-5.3 mmol/L CHLORIDE 99 98-110 mmol/L CARBON DIOXIDE 28 20-32 mmol/L CALCIUM 9.6 8.6-10.3 mg/dL PROTEIN, TOTAL 7.4 6.1-8.1 g/dL ALBUMIN 4.3 3.6-5.1 g/dL GLOBULIN 3.1 1.9-3.7 g/dL (calc) ALBUMIN/GLOBULIN RATIO 1.4 1.0-2.5 (calc) BILIRUBIN, TOTAL 0.7 0.2-1.2 mg/dL ALKALINE PHOSPHATASE 63 35-144 U/L AST 18 10-35 U/L ALT 29 9-46 U/L HEMOGLOBIN A1c (496) Reviewed date:04/01/2025 05:26:13 PM Interpretation: Performing Lab:[facility]HA E [address] [employer], [id number] Daniel Lozano Notes/Report: HEMOGLOBIN A1c 10.8 <5.7 % For someone without known diabetes, a hemoglobin A1c value of 6.5% or greater indicates that they may have diabetes and this should be confirmed with a follow-up test. For someone with known diabetes, a value <7% indicates that their diabetes is well controlled and a value greater than or equal to 7% indicates suboptimal control. A1c targets should be individualized based on duration of diabetes, age, comorbid conditions, and other considerations. Currently, no consensus exists regarding use of hemoglobin A1c for diagnosis of diabetes for children. REASON FOR VISIT Annual-fasting, concerned about weight Medications Medication SIG (Take, Route, Frequency, Duration) Notes Start Date End Date Status Advil 200 MG 1 tablet with food o r milk as needed Orally Three times a day prn Active Lisinopril-hydroCHLOROthiaz loki 20-12.5 MG 1 tab(s) orally once a day; Duration: 90 days Active metFORMIN HCl ER (OSM) 500 MG 1 tab(s) orally at night; Duration: 90 days 01/27/2023 Active Atorvastatin Calcium 20 MG 1 tab(s) oral ly at night; Duration: 90 days 01/27/2023 Active Centrum Men - 1 tab(s) orally once a day Active Immunizations Vaccine Route Administration Date Status Comme nts Boostrix IM Intramuscular 03/29/2025 Administered Social History Tobacco Use: Social History Observation Description Date Details (start date - stop date) Never Smoker NA - NA Smoking: Question Answer Notes Are you a: nonsmoker Problems Problem Type SNOMED Code ICD Code Onset Dates Problem Status W/U Status Risk Notes Problem Osteoarthritis of knee (864191299) Primary osteoarthritis of both knees (M17.0) Active confirmed Vital Signs Temperature 97.8 degrees Fahrenheit 03/29/20 25 Heart Rate 108 /min 03/29/2025 Blood pressure systolic 116 mm Hg 03/29/20 25 Blood pressure diastolic 74 mm Hg 025 Height 71.25 in 03/29/2025 Weight 264.4 lbs 03/29/2025 BMI 36.61 kg/m2 03/29/2025 Encounters Encounter Location Date Provider Diagnosis [facility] [address] [place] [address] 03/29/2025 Radha Yarbrough Type 2 diabetes mellitus without complication, without long-term current use of insulin E11.9 ; Medicare annual wellness visit, subsequent Z00.00 ; Mixed dyslipidemia E78.2 ; Hypertension, essential I10 ; Morbid (severe) obesity due to excess calories E66.01 ; Body mass index [BMI] 36.0-36.9, adult Z68.36 ; Encounter for immunization Z23 and Primary osteoarthritis of both knees M17.0 Assessments Encounter Date Diagnosis (ICD Code) Assessment Notes Treatment Notes Treatment Clinical Notes Section Notes 03/29/2025 Type 2 diabetes mellitus without complication, without long-term current use of insulin (ICD-10 - E11.9) Repeat A1C today, consider GLP1I for better control, renal protection. Continue metformin, ACEI, Statin therapy and encouraged annual eye exam 03/29/2025 Medicare annual wellness visit, subsequent (ICD-10 - Z00.00) update vaccinations as noted, discussed importance of weight loss. no cognitive or mood concerns. 03/29/2025 Mixed dyslipidemia (ICD-10 - E78.2) tolerating statin therapy, goal LDL < 70 03/29/2025 Hypertension, essential (ICD-10 - I10) well controlled on current regimen 03/29/2025 Morbid (severe) obesity due to excess calories (ICD-10 - E66.01) additional weight loss encouraged with healthy diet and more regular exercise, complicates all aspects of care 03/29/2025 Body mass index [BMI] 36.0-36.9, adult (ICD-10 - Z68.36) 03/29/2025 Encounter for immunization (ICD-10 - Z23) 03/29/2025 Primary osteoarthritis of both knees (ICD-10 - M17.0) following with orthopedics, weight loss likely to be beneficial with respect to arthritis pain as well Plan Of Treatment Treatment Notes Assessment Notes Mixed dyslipidemia tolerating statin th erapy, goal LDL < 70 Hypertension, essential well controlled on current regimen Morbid (severe) obesity due to excess calories additional weight loss encouraged with healthy diet and more regular exercise, complicates all aspects of care Next Appt Details Follow Up: 6 Weeks, Reason: Provider Name:Radha alejandre, 05/09/2025 08:15:00 AM, [address] [facility], [address], [place], [address], Progress Notes * Lois ACOSTAOB:1950 (75 yo M)Acc No.[id number]:03/29/2025 Progress Notes Patient: Dhruv JONESy Provider: VIRA Kunz :1950 A ge:75 Y S ex:Male Date:03/29/2025 Address: [id number] Pcp:Lacy Jimenez Subjective: * Chief Complaints: * 1 . Annual-fasting. 2. Concerned about weight. * HPI: g en: 75 year old male presents for routine FU on chronic conditions and annual wellness review No acute concerns. No concerns about fall risk, memory and mood. HTN- on lisinopril/HCTZ, tolerates well. Blood pressure at goal. Denies CP, SOA or dizziness. Minimal LE edema, intermittent, at baseline GERD- well controll on prilosec. Denies reflux Type 2 DM - A1C 7 at onset. On low dose metformin and has lost weight since diagnosis but really not much since that initial loss. Tolerating statin therapy Still following with Ortho for management of knee OA, likely needs replacement at some point but does get some relief with injections and therapy. D iabetes: Denies : foot lesions. D enies : Complications. FSBS d oesn't check. o ral medications w ell tolerated. d iet n oncompliant with diet. o phthalmology eval W ithin the past year. A CE inhibitor? y es. S tatin therapy y es. E xercise O ccasionally. M icroalbumin M ildly elevated. * ROS: A LLERGY: Reviewed, No Symptoms Reported: Y es. F UNCTIONAL STATUS: ADLS I ndependent for all ADL/IADL. R ESPIRATORY: Reviewed, No Symptoms Reported: Y es. C ARDIOLOGY: no D izziness. n o C hest pain. n o P alpitations. L eg edema y es, m ore at the end of the day. n o S hortness of breath.? C ONSTITUTIONAL: no L oss of appetite. n o F ever. D ERMATOLOGY: no R klarissa. G ASTROENTEROLOGY: Reviewed, No Symptoms Reported: Y es. M USCULOSKELETAL: Joint stiffness y es. J oint pain y es. n o?Joint swelling. N EUROLOGY: no H eadache. n o D izziness. P SYCHOLOGY: Reviewed, No Symptoms Reported: Y es. U ROLOGY: Dysuria n o. n o D ifficulty urinating. n o?Frequent urination. N octuria y es, 1 x. * Medical History: H [place], Type 2 diabetes mellitus, started metformin 01/2023, Mild hyperlipidemia. * Surgical History: T onsillectomy 1959, Left neck lesion removal-savi (Parotid) 01/2015. * Hospitalization/Major Diagno stic Procedure: T onsillectomy 1959. * Family History: F ather: , lung cancer, diagnosed with Cancer. M other: , diagnosed with Stroke. P aternal Grand Father: . P aternal Grand Mother: . M aternal Grand Father: . M aternal Grand Mother: . M aternal uncle: alive, 5 uncles . M aternal aunt: alive, 3 aunts . C benny: alive. 1 son(s) - healthy. .? * Social History: S moking A re you a: n onsmoker. R ecreational drug use: no. Exercise: no. Home smoke detector use: yes. Caffeine: yes, frequency:4-5 soft drinks daily. Living Will: Yes. Alcohol: socially. Sexually active: yes. Travel outside [place]: no. Occupation: Contractor. * Medications: T aking Advil 200 MG Tablet 1 tablet with food or milk as needed Orally Three times a day , Notes to Pharmacist: prn, Taking Centrum Men - Tablet 1 tab(s) orally once a day , Taking Atorvastatin Calcium 20 MG Tablet 1 tab(s) orally at night , Taking Lisinopril-hydroCHLOROthiazide 20-12.5 MG Tablet 1 tab(s) orally once a day , Taking metFORMIN HCl ER (OSM) 500 MG Tablet Extended Release 24 Hour 1 tab(s) orally at night , Discontinued Doxycycline Monohydrate 100 MG Capsule 1 cap(s) orally 2 times a day , Medication List reviewed and reconciled with the patient * Allergies: N .K.D.A. Objective: * Vitals: N urse: jl, Pain: 0, Temp: 97.8, RR: 20, HR: 108, BP: 116/74, Ht: 71.25, Wt: 264.4, BMI:36.61. * Examination: G eneral Examination: General P leasant and Cooperative, NAD on RA,. Oral cavity: M oist membranes. Chest: n ormal shape and expansion. Heart: R egular Rate and Rhythm, no murmur, rubs or gallops. HEENT: p harynx and tonsils normal, TM's normal. Lungs: L CTAB, No wheezes, crackles or rhonchi, Good air movement,. Abdomen: S oft, NTND, BSNA, No organomegaly or peritoneal signs.. Neurologic Exam: A lert and oriented x 3. Skin: w ithout acute rashes, benign appearing moles and keratoses. Peripheral pulses: n ormal (2+) bilaterally. Extremities: n o clubbing, no edema,. neck s upple,, no thyromegaly,, no lymphadenopathy,, No Carotid Bruit,. Psych N ormal Mood/Affect. diabetic foot exam V isual exam of foot performed: mild bilat callus formation and arthritic changes 1st MTP joints. Assessment: * Assessment: 1. M edicare annual wellness visit, subsequent - Z00.00 (Primary) 2 . T ype 2 diabetes mellitus without complication, without long-term current use of insulin - E11.9 ? 3 . M ixed dyslipidemia - E78.2 4 . H ypertension, essential - I10 5. M orbid (severe) obesity due to excess calories - E66.01 6 .?Body mass index [BMI] 36.0-36.9, adult - Z68.36 7 . E ncounter for immunization - Z23 8 . P rimary osteoarthritis of both knees - M17.0 Plan: * Treatment: 2. T ype 2 diabetes mellitus without complication, without long-term current use of insulin L AB: LIPID PANEL, STANDARD (7600) (Collection Date & Time - 03/29/2025 09:13 AM) Value Reference Range T RIGLYCERIDES 136 <150 - mg/dL * C HOLESTEROL, TOTAL 127 <200 - mg/dL * H DL CHOLESTEROL 43 > OR = 40 - mg/dL * L DL-CHOLESTEROL 62 - mg/dL (calc) * C HOL/HDLC RATIO 3.0 <5.0 - (calc) * N ON HDL CHOLESTEROL 84 <130 - mg/dL (calc) * Mora Raza 04/01/2025 09:35:46 AM EDT > Patient informed. Said he would see Director [employer], but appointment needs to be scheduled for about 3 weeks out ?LAB: COMPREHENSIVE METABOLIC PANEL (24936) (Collection Date & Time - 03/29/2025 09:13 AM)* Value Reference Range G LUCOSE 244 H 65-99 - mg/dL * U MONICA NITROGEN (BUN) 19 7-25 - mg/dL * C REATININE 0.94 0.70-1.28 - mg/dL * B UN/CREATININE RATIO SEE NOTE: 6-22 - (calc) * S ODIUM 136 135-146 - mmol/L * P OTASSIUM 4.1 3.5-5.3 - mmol/L * C HLORIDE 99 98-110 - mmol/L * C ARBON DIOXIDE 28 20-32 - mmol/L * C ALCIUM 9.6 8.6-10.3 - mg/dL * P ROTEIN, TOTAL 7.4 6.1-8.1 - g/dL * A LBUMIN 4.3 3.6-5.1 - g/dL * G LOBULIN 3.1 1.9-3.7 - g/dL (calc ) * A LBUMIN/GLOBULIN RATIO 1.4 1.0-2.5 - (calc) * B ILIRUBIN, TOTAL 0.7 0.2-1.2 - mg/dL * A LKALINE PHOSPHATASE 63 35-144 - U/L * A ST 18 10-35 - U/L * A LT 29 9-46 - U/L * E GFR 86 > OR = 60 - mL/min/1 .73m2 * Mora Raza 04/01/2025 09:35:46 AM EDT > Patient informed. Said he would see Director [employer], but appointment needs to be scheduled for about 3 weeks out ?LAB: HEMOGLOBIN A1c (496) (Collection Date & Time - 03/29/2025 09:13 AM)* Value Reference Range H EMOGLOBIN A1c 10.8 H <5.7 - % * Mora Raza 04/01/2025 09:35:46 AM EDT > Patient informed. Said he would see Director [employer], but appointment needs to be scheduled for about 3 weeks out ?LAB: Microalbumin (In-House) (Collection Date & Time - 03/29/2025)* Value Reference Range A LB 80 mg/L * C RE 200 mg/dL * A :C 30-300 mg/g Clinical Notes: Repeat A1C today, consider GLP1I for better control, renal protection. Continue metformin, ACEI, Statin therapy and encouraged annual eye exam??3.?Mixed dyslipidemia?LAB: LIPID PANEL, STANDARD (7600) (Collection Date & Time - 03/29/2025 09:13 AM)* Value Reference Range T RIGLYCERIDES 136 <150 - mg/dL * C HOLESTEROL, TOTAL 127 <200 - mg/dL * H DL CHOLESTEROL 43 > OR = 40 - mg/dL * L DL-CHOLESTEROL 62 - mg/dL (calc) * C HOL/HDLC RATIO 3.0 <5.0 - (calc) * N ON HDL CHOLESTEROL 84 <130 - mg/dL (calc) * Mora Raza 04/01/2025 09:35:46 AM EDT > Patient informed. Said he would see Director [employer], but appointment needs to be scheduled for about 3 weeks out ?LAB: COMPREHENSIVE METABOLIC PANEL (38338) (Collection Date & Time - 03/29/2025 09:13 AM)* Value Reference Range G LUCOSE 244 H 65-99 - mg/dL * U MONICA NITROGEN (BUN) 19 7-25 - mg/dL * C REATININE 0.94 0.70-1.28 - mg/dL * B UN/CREATININE RATIO SEE NOTE: 6-22 - (calc) * S ODIUM 136 135-146 - mmol/L * P OTASSIUM 4.1 3.5-5.3 - mmol/L * C HLORIDE 99 98-110 - mmol/L * C ARBON DIOXIDE 28 20-32 - mmol/L * C ALCIUM 9.6 8.6-10.3 - mg/dL * P ROTEIN, TOTAL 7.4 6.1-8.1 - g/dL * A LBUMIN 4.3 3.6-5.1 - g/dL * G LOBULIN 3.1 1.9-3.7 - g/dL (calc ) * A LBUMIN/GLOBULIN RATIO 1.4 1.0-2.5 - (calc) * B ILIRUBIN, TOTAL 0.7 0.2-1.2 - mg/dL * A LKALINE PHOSPHATASE 63 35-144 - U/L * A ST 18 10-35 - U/L * A LT 29 9-46 - U/L * E GFR 86 > OR = 60 - mL/min/1 .73m2 * Mora Raza 04/01/2025 09:35:46 AM EDT > Patient informed. Said he would see Director [employer], but appointment needs to be scheduled for about 3 weeks out ?LAB: HEMOGLOBIN A1c (496) (Collection Date & Time - 03/29/2025 09:13 AM)* Value Reference Range H EMOGLOBIN A1c 10.8 H <5.7 - % * Mora Raza 04/01/2025 09:35:46 AM EDT > Patient informed. Said he would see Director [employer], but appointment needs to be scheduled for about 3 weeks out Notes: tolerating statin therapy, goal LDL < 70??4.?Hypertension, essential?LAB: LIPID PANEL, STANDARD (7600) (Collection Date & Time - 03/29/2025 09:13 AM)* Value Reference Range T RIGLYCERIDES 136 <150 - mg/dL * C HOLESTEROL, TOTAL 127 <200 - mg/dL * H DL CHOLESTEROL 43 > OR = 40 - mg/dL * L DL-CHOLESTEROL 62 - mg/dL (calc) * C HOL/HDLC RATIO 3.0 <5.0 - (calc) * N ON HDL CHOLESTEROL 84 <130 - mg/dL (calc) * Mora Raza 04/01/2025 09:35:46 AM EDT > Patient informed. Said he would see Director [employer], but appointment needs to be scheduled for about 3 weeks out ?LAB: COMPREHENSIVE METABOLIC PANEL (61760) (Collection Date & Time - 03/29/2025 09:13 AM)* Value Reference Range G LUCOSE 244 H 65-99 - mg/dL * U MONICA NITROGEN (BUN) 19 7-25 - mg/dL * C REATININE 0.94 0.70-1.28 - mg/dL * B UN/CREATININE RATIO SEE NOTE: 6-22 - (calc) * S ODIUM 136 135-146 - mmol/L * P OTASSIUM 4.1 3.5-5.3 - mmol/L * C HLORIDE 99 98-110 - mmol/L * C ARBON DIOXIDE 28 20-32 - mmol/L * C ALCIUM 9.6 8.6-10.3 - mg/dL * P ROTEIN, TOTAL 7.4 6.1-8.1 - g/dL * A LBUMIN 4.3 3.6-5.1 - g/dL * G LOBULIN 3.1 1.9-3.7 - g/dL (calc ) * A LBUMIN/GLOBULIN RATIO 1.4 1.0-2.5 - (calc) * B ILIRUBIN, TOTAL 0.7 0.2-1.2 - mg/dL * A LKALINE PHOSPHATASE 63 35-144 - U/L * A ST 18 10-35 - U/L * A LT 29 9-46 - U/L * E GFR 86 > OR = 60 - mL/min/1 .73m2 * Mora Raza 04/01/2025 09:35:46 AM EDT > Patient informed. Said he would see Director [employer], but appointment needs to be scheduled for about 3 weeks out ?LAB: HEMOGLOBIN A1c (496) (Collection Date & Time - 03/29/2025 09:13 AM)* Value Reference Range H EMOGLOBIN A1c 10.8 H <5.7 - % * Mora Raza 04/01/2025 09:35:46 AM EDT > Patient informed. Said he would see Director [employer], but appointment needs to be scheduled for about 3 weeks out Notes: well controlled on current regimen??5.?Morbid (severe) obesity due to excess calories? Notes: additional weight loss encouraged with healthy diet and more regular exercise, complicates all aspects of care??6.?Primary osteoarthritis of both knees? Clinical Notes: following with orthopedics, weight loss likely to be beneficial with respect to arthritis pain as well?? * Immunizations: Boostrix : .5 mL (Route: Intramuscular) given by CHAPITO Farrar on Right Arm * Procedure Codes: 8 2043 MICROALBUMIN, URINE, Modifiers: QW , 60584 Boostrix, 18584 immunization administration through 18 years of age via any route of administration., 74752 HEALTH RISK [id number], G0439 ANNUAL WELLNESS VST; PPS SUBSQT VST, M1211 Hemoglobin a1c level >9.0%, 1123F ADVANCED DIRECTIVE - HAS A LIVING WILL, 3017F COLORECTAL CA SCREEN DOC REV, G8417 BMI >=30 CALCUATE W/FOLLOWUP, G8510 NEGATIVE SCREENING F/U NOT REQUIRED, G9903 Pt scrn tbco id as non user, G8752 Most recent systolic blood pressure < 140mmhg, G8754 Most recent diastolic blood pressure < 90mmhg, G9744 PATIENT NOT ELIG D/T ACTIVE DX HTN * Preventive Medicine: Counseling: L iving will H as living will. NICHOLAS Screening: F alls: Future screening for fall risks H ave you had two or more falls in the past year? N o, H ave you had any falls with injury in the past year? N o. Depression Screening: P HQ 2 F eeling down depressed or hopeless N o. Immunizations: i nfluenza H ave you had a flu shot since the most recent April 25 ? N o. P neumonia vaccine: Status for Older Adults A re you up-to-date on your pneumonia vaccine? yes or no B oth Prevnar and Pneumovax. T dap D one today in office. S hingrix U TD. C OVID C ompleted series. R SV vaccination D iscussed, will consider. Screening / Special Tests: C olonoscopy C ologuard 2023, normal. P SA N o Family History, No symptoms. L miles Cancer Screening N ot indicated - nonsmoker. * Follow Up: 6 Weeks * * Sign off status: Completed true * Provider: VIRA Kunz Date: 0 03/29/2025 Generated for Candido brennan/Deonna/Jamarcus on: 0 04/28/2025 12:45 PM EDT History and Physical Notes * HPI (History of Present Illness) Category Sub-Category Detail Notes Category Not es Diabetes FSBS doesn't check oral medications well tolerated diet noncompliant with di et foot lesions ophthalmology eval Within the past year FLOYD inhibitor? yes Statin therapy yes Exercise Occasionally Complications Microalbumin Mildly elevated gen 75 year old male presents for routine FU on chronic conditions and annual wellness review No acute concerns. No concerns about fall risk, memory and mood. HTN- on lisinopril/HCTZ, tolerates well. Blood pressure at goal. Denies CP, SOA or dizziness. Minimal LE edema, intermittent, at baseline GERD- well controll on prilosec. Denies reflux Type 2 DM - A1C 7 at onset. On low dose metformin and has lost weight since diagnosis but really not much since that initial loss. Tolerating statin therapy Still following with Ortho for management of knee OA, likely needs replacement at some point but does get some relief with injections and therapy Examination Category Sub-Category Detail Notes Category Not es General Examination HEENT: pharynx and tonsils normal, TM's normal Heart: Regular Rate and Rhy thm, no murmur, rubs or gallops Lungs: LCTAB, No wheezes, c rackles or rhonchi, Good air movement, Abdomen: Soft, NTND, BSNA, No organomegaly or peritoneal signs. Extremities: no clubbing, no chyna a, Skin: without acute rashes , benign appearing moles and keratoses Neurologic Exam: Alert and oriented x 3 Oral cavity: Moist membranes Peripheral pulses: normal (2+) bilatera lly Chest: normal shape and exp ansion neck supple,, no thyromeg juan,, no lymphadenopathy,, No Carotid Bruit, General Pleasant and Coopera tive, NAD on RA, Psych Normal Mood/Affect diabetic foot exam Visual exam of foot performed :: mild bilat callus formation and arthritic changes 1st MTP joints
--- OUTSIDE RECORDS SUMMARY | 2025-04-04 11:16 | XMS_ITS ---
Author Organization [facility] Address [address] [facility] [address] [place] [address] Care Team Providers Care Plumber Name Role Phone Sean Jimenez Primary Care Provider SEAN Jimenez APRN Unavailable Unavailable Encounters Encounter Location Date Provider Diagnosis [facility] [address] [place] [address] 04/04/2025 Sean Jimenez Type 2 diabetes mellitus without complication, without long-term current use of insulin E11.9 Assessments Encounter Date Diagnosis (ICD Code) Assessment Notes Treatment Notes Treatment Clinical Notes Section Notes 04/04/2025 Type 2 diabetes mellitus without complication, without long-term current use of insulin (ICD-10 - E11.9) Plan Of Treatment Pending Test Test Name Order Date Dietary Consult 04/04/2025 Next Appt Details Provider Name:Radha Conway ce, 05/09/2025 08:15:00 AM, [address] [facility], [address], [place], [address], Progress Notes * Lois ACOSTAOB:1950 (75 yo M)Acc No.[id number]:04/04/2025 Patient: Sridhar JONES :1950 A ge:75 Y S ex:Male Address:[facility] [place], [address] Subjective: * Chief Complaints: * * Medical History: * Surgical History: * Hospitalization/Major Diagno stic Procedure: * Medications: Objective: * Vitals: * Physical Examination: Assessment: * Assessment: 1. T ype 2 diabetes mellitus without complication, without long-term current use of insulin - E11.9 Plan: * Treatment: * Procedure Codes: * true * Date: Generated for Candido brennan/Deonna/Rodericksmitting on: 0 04/28/2025 12:44 PM EDT
--- OUTSIDE RECORDS SUMMARY | 2025-04-28 12:45 | XMS_ITS | Clinical Summary ---
Author Organization [facility] Address [address] [place] [address] Phone Care Team Providers Care Magisterial District Judge Name Role Phone Kian ACKERMAN, Justin Goss [facility] [phone] [ ] Conditions or Problems Problem Name Problem Code Onset Date Status Entry Date Provider Comment Standard Description Annotate Health advice, education, or counseling 950265137 (SNOMED CT) Active Justin Langston MD Procedure carried out on subject Chronic osteomyeliti s, left toe M86.672 (ICD-10-CM) Active Justin Langston MD Other chronic osteomyelitis , left ankle and foot Myositis 21329122 (SNOMED CT) Active Elizabeth Langston Myositis Acute osteomyeliti s, left foot/toe M86.172 (ICD-10-CM) Active Noa Dias Other acute osteomyelitis , left ankle and foot Cellulitis, 2nd toe, left L03.032 (ICD-10-CM) Active Nao Arun Cellulitis of left toe Obesity due to excess calories E66.09 (ICD-10-CM) Active Noa Dias Other obesity due to excess calories Medications Medication Instructions Start Date Stop Date Generic Name [facility] Provider CLOPIDOGREL BISULFATE 75 MG TABS tablet by mouth clopidogrel 45849235510 Severiano Michael INDOMETHACIN 50 MG CAPS capsule by mouth indomethacin 34121138105 Severiano [place] Fluad [id number] (65 yr up)(PF) 45 mcg (15 mcg x 3)/0.5 mL syringe flu vac ts20 65up-xoznj01b(p f) 31658166197 Severiano [place] Pneumovax-23 25 mcg/0.5 mL syringe pneumococcal 23-janis ps vaccine 91634364059 Severiano Michael INDOMETHACIN 50 MG CAPS capsule by mouth indomethacin 70319703801 Severiano [place] ZYVOX 600 MG TABS Take 1 tablet by mouth twice a day linezolid 44295234509 Elizabeth Langston OMEPRAZOLE 20 MG CPDR capsule by mouth omeprazole 31828422651 Severiano Michael DOXYCYCLINE HYCLATE 100 MG CAPS Take 1 capsule by mouth twice a day doxycycline hyclate 07354646519 Elizabeth Langston DICLOFENAC SODIUM 1 % GEL gram to skin diclofenac sodium 81184791770 Severiano [place] FLUAD 0.5 ML JORGE flu vac ts20 65up-xympp10v(p f) 51133496012 Severiano [place] LISINOPRIL-HYDR OCHLOROTHIAZIDE 20-12.5 MG TABS tablet by mouth lisinopril-hydr ochlorothiazide 08388499371 Severiano [place] CLOPIDOGREL BISULFATE 75 MG TABS tablet by mouth clopidogrel 13995705786 Severiano Michael ZYVOX 600 MG TABS Take one tablet by mouth twice daily LINEZOLID 67955003633 Justin Langston MD DOXYCYCLINE HYCLATE 100 MG CAPS Take one capsule by mouth twice daily DOXYCYCLINE HYCLATE 67352439993 Justin Langston MD PNEUMOVAX 23 25 MCG/0.5ML INJECTION INJECTABLE PNEUMOCOCCAL VAC POLYVALENT 00730069959 Severiano [place] FLUAD 0.5 ML JORGE INFLUENZA VAC A&B SURF ANT ADJ 71374873468 Severiano [place] OMEPRAZOLE 20 MG CPDR OMEPRAZOLE 19670064044 Severiano Michael LISINOPRIL-HYDR OCHLOROTHIAZIDE 20-12.5 MG TABS LISINOPRIL-HYDR OCHLOROTHIAZIDE 43638871216 Severiano Michael DICLOFENAC SODIUM 1 % GEL DICLOFENAC SODIUM 47529849711 Severiano [place] INDOMETHACIN 50 MG CAPS INDOMETHACIN 94035996391 Severiano [place] CEFDINIR 300 MG CAPS CEFDINIR 08454880370 Severiano Michael CLOPIDOGREL BISULFATE 75 MG TABS CLOPIDOGREL BISULFATE 24763402946 Severiano [place] CLINDAMYCIN HCL 300 MG CAPS CLINDAMYCIN HCL 49082464476 Severiano [place] Medications Administered No information available. Allergies, Adverse Reactions, Alerts No information available. Results Date Name Value Unit Range Flag Description External Other: Patient sheila christensen update - Email Push, [facility] ... PAT E-MAIL [email or web address]'s e-mail address External Other: Patient sheila christensen update - EmailStatus, [facility], [facility] ... PATPORTALPIN Active This gerardo l be used to establish a PIN number for patients to register in the Patient Portal. Lab Report: CBC WITH AUTO DI FFERENTIAL ZZ-GE-unk 0.0 /100 WBC 0.0-0.2 GE use only - fo r LinkLogic import when terms are not otherwise specified IMMATUREGRAN 0.08 10*3/MM3 0.00-0.05 H Immature granulocytes [#/volume] in Blood BASO# 0.06 10*3/mm3 0.00-0.20 Basophils [#/vol ume] in Blood EOS ABSLT 0.12 10*3/uL 0.00-0.40 Eosinophi ls [#/volume] in Blood MONOSCT AUTO 0.83 10*3/uL 0.10-0.90 Monocy binh [#/volume] in Blood by Automated count LYMPHCT AUTO 2.11 10*3/mm3 0.70-3.10 Lymph ocytes [#/volume] in Blood by Automated count ABS NEUTROPH 5.12 10*3/uL 1.70-7.00 Neutro phils [#/volume] in Blood IMM GRANU % 1.0 % 0.0-0.5 H Immature granulocytes/100 leukocytes in Blood % EOS AUTO 1.4 % 0.3-6.2 Eosinophil s/100 leukocytes in Blood by Automated count MONOCYTE % 10.0 % 5.0-12.0 Monocytes /100 leukocytes in Blood by Automated count LYMPHOCY BF 25.4 % 19.6-45.3 lymphoc ytes as percent of body fluid leukocytes NEUTROP BF 61.5 % 42.7-76.0 Neutroph ils/100 leukocytes in Body fluid PLATELETS 270 10*3/mm3 140-450 Platelets [#/volume] in Blood by Automated count RDW_ 13.4 12.3-15.4 RDW, no uni ts MCHC 33.4 G/DL 31.5-35.7 MCHC [Mass/ volume] by Automated count MCH 31.8 pg 26.6-33.0 MCH [Entiti c mass] by Automated count MCV 95.3 fL 79.0-97.0 MCV [Entiti c volume] by Automated count HCT 42.2 % 37.5-51.0 Hematocrit [Volume Fraction] of Blood by Automated count HGB 14.1 g/dL 13.0-17.7 Hemoglobin [Mass/volume] in Blood RBC 4.43 10*6/mm3 4.14-5.80 Erythrocyt es [#/volume] in Blood by Automated count WBC 8.32 10*3/mm3 3.40-10.8 0 Leukocytes [#/volume] in Blood by Automated count Lab Report: SEDIMENTATION RA TE ESR 34 mm/h 0-20 H Erythrocyte sedimentation rate by Westergren method Lab Report: C-REACTIVE PROTE IN CRP 0.60 mg/dL 0.00-0.50 H C reactive protein [Mass/volume] in Serum or Plasma Lab Report: COMPREHENSIVE ME TABOLIC PANEL ANIONGAP 13.0 mmol/L 5.0-15.0 anion gap, serum BUN/CREAT 14.0 7.0-25.0 Urea nitrogen/Creatinine [Mass Ratio] in Serum or Plasma GFRC 88 mL/min/1. 73m2 >60 Glomerular Filtration Rate Calculation BILI TOTAL 0.3 mg/dL 0.0-1.2 Bilirubin. total [Mass/volume] in Serum or Plasma ALK PHOS 59 U/L 39-117 Alkaline mai sphatase [Enzymatic activity/volume] in Blood SGOT (AST) 20 U/L 1-40 Aspartate aminotransferase [Enzymatic activity/volume] in Serum or Plasma SGPT (ALT) 37 U/L 1-41 Alanine aminotransferase [Enzymatic activity/volume] in Serum or Plasma ALBUMIN 4.10 g/dL 3.50-5.20 Albumin [Mass/volume] in Serum or Plasma PROTEIN, TOT 7.3 g/dL 6.0-8.5 Protein [Mass/volume] in Serum or Plasma CALCIUM 9.6 mg/dL 8.6-10.5 Calcium [Moles/volume] in Serum or Plasma CO2 23.0 mmol/L 22.0-29.0 Carbon diox loki, total [Moles/volume] in Venous blood CHLORIDE 102 mmol/L 98-107 Chloride [Moles/volume] in Serum or Plasma POTASSIUM 3.8 mmol/L 3.5-5.2 Potassium [Moles/volume] in Serum or Plasma SODIUM 138 mmol/L 136-145 Sodium [Moles/volume] in Serum or Plasma CREATININE 0.86 mg/dL 0.76-1.27 Creatini ne [Mass/volume] in Serum or Plasma BUN 12 mg/dL 8-23 Urea nitrogen [Mass/volume] in Serum or Plasma GLUCOSE SER 163 mg/dL 65-99 H Glucose [Mass/volume] in Serum or Plasma Lab Report: CK CPK 105 U/L 20-200 Creatine jevon se [Enzymatic activity/volume] in Serum or Plasma Lab Report: CBC With Differe ntial/Platelet, Comp. Metabolic Panel (14), ... A/G RATIO 1.3 g/dL Albumin/Mary bulin [Mass Ratio] in Serum or Plasma GLOBULIN 3.2 Globulin [Mass/volume] in Serum EGFR NOT AFA 88 mL/min/1. 73m2 >60 Glomerular filtration rate/1.73 sq M.predicted among non-blacks [Volume Rate/Area] in Serum, Plasma or Blood by Creatinine-based formula (MDRD) BASOPHIL % 0.7 % 0.0-1.5 Basophils/ 100 leukocytes in Blood by Manual count LYMPHS % 25.4 % 19.6-45.3 Lymphocyte s/100 leukocytes in Blood by Automated count PMN % 61.5 % 42.7-76.0 Neutrophils /100 leukocytes in Blood by Automated count RDW 13.4 % 12.3-15.4 Erythrocyte distribution width [Ratio] by Automated count Office Visit: rm 3 MEDS REVIEW Done Documenta tion of current medications (procedure) SMOK STATUS Never smoker Tobacco smoking status ORALTOBACUSE Never Tobacco smoking status Plan of Care Type Date Detail Pending order X-Ray, Foot Pending order STAT Labs Pending order CMP Pending order CBC with Differe ntial Pending order C- reactive prot ein Pending order Sedimentation Ra te (ESR) Pending order CPK Procedures Code Procedure Name Date Entry Date CPT-97761 X-Ray, Foot CPT-sl STAT Labs CPT-65073 CMP [id number] CBC with Differential 2020 CPT-85342 C- reactive protein CPT-49870 Sedimentation Rate (ESR) 202 09/01/02 [id number], [id number] CPK Vital Signs Date Name Value Unit Description BMI (Body Mass Index) 37.54 kg/m2 Bod y Mass Index (Ratio) Body Temperature 97.5 [degF] temperat ure E&M BP Diastolic 96 mm[Hg] blood pressu re, diastolic BP Systolic 150 mm[Hg] blood pressur e, systolic Heart Rate 102 /min pulse rate Height 71 [in_us] height E&M Weight Measured 269.2 [lb_av] weight E& M Weight Measured 269.2 [lb_av] weight E& M Respiratory Rate 18 /min respirat ory rate E&M Immunizations No information available. Advance Directives Directive Description Start Date HEALTHCARE SURROGATE POWER OF SEED EXPERT LIVING WILL ON FILE
--- OUTSIDE RECORDS SUMMARY | 2025-04-28 12:45 | XMS_ITS | Clinical Summary ---
Author Organization [facility] Address [address] [place] [id number] Care Team Providers Care Archaeology Professor Name Role Phone Provider, No Known Primary Care Provider Unavail able Medications linezolid (ZYVOX) 600 MG tablet Take 1 tablet by mouth 2 (Two) Times a Day. 20 tablet 04/10/2021 3:05 PM EDT 04/10/2021 Active Social History Tobacco Use Types Packs/Day Years Used Date Smoking Tobacco: Never Assessed Abuse Screen Answer Date Recorded Unsafe at Home or Work/School Not on file Feels Threatened by Someone? Not on file Does Anyone Keep You from Co ntacting Others or Doint Things Outside the Home? Not on file 06/06/2023 Physical Sign of Abuse Present Not on file 1 Housing Stability Answer Date Recorded Current Living Arrangements Not on file 05/25 Potentially Unsafe Housing Conditions Not on guy e 06/06/2023 Family and Community Support Answer Frandy e Recorded Help with Day-to-Day Activities Not on file 06/06/2023 Lonely or Isolated Not on file 06/06/2023 Employment Answer Date Recorded Do you want help finding or keeping work or a flip b? Not on file 06/06/2023 Disabilities Answer Date Recorded Concentrating, Remembering, or Making Decisions Difficulty Not on file 06/06/2023 Doing Errands Independently Difficulty Not on fi le 06/06/2023 Education Answer Date Recorded Help with school or training? Not on file Preferred Language Not on file 06/06/2023 Sex and Gender Information Value Date Recorded Sex Assigned at Not on file Legal Sex Male 12:48 PM EDT Gender Identity Not on file Sexual Orientation Not on file Plan of Treatment Health Maintenance Due Date Last Done Comments ANNUAL PHYSICAL 1950 HEPATITIS C SCREENING 1950 COLOGUARD 02/24/1997 COLON CANCER SCREENING 5 YEA R SIGMOIDOSCOPY 02/24/1997 COLONOSCOPY 02/24/1997 COLORECTAL CANCER SCREENING 02/24/1997 CT COLONOGRAPHY 02/24/1997 FECAL OCCULT BLOOD TEST 02/24/1997 FIT Testing (1 year) 02/24/1997 ZOSTER VACCINE (1 of 2) 02/24/2002 TDAP/TD VACCINES (2 - Tdap) 10/27/2006 10/27/1996 AAA SCREEN ONCE 02/24/2017 Pneumococcal Vaccine 50+ (2 of 2 - PCV) 07/29/2021 1 09/29/2019 COVID-19 Vaccine ( season) 2024, 10/25/2020 INFLUENZA VACCINE 05/25/2025 07/29/2020 Insurance [employer] Care Teams Archaeology Professor Relationship Specialty Start Date End Date Provider, No Known [facility] [place] [address] PCP - General 04/10/21
--- OUTSIDE RECORDS SUMMARY | 2025-04-28 12:45 | XMS_ITS | Patient Health Record ---
Author Organization [facility] Address [address] [place] [address] Care Team Providers Care Pole Frame Construction Worker Name Role Phone Lacy Jimenez Primary Care Provider [phone] LACY Jimenez APRN Unavailable Unavailable Adonis Stacy Unavailable [phone] Radha Yarbrough Unavailable [phone] Migration, Provider Unavailable Unavailable Allergies No Known Allergies Results Component Value Reference Range Notes HEMOGLOBIN A1c (496) Reviewed date:04/01/2025 05:26:13 PM Interpretation: Performing Lab:[facility] [address], [place]BN[address] Daniel Lozano Notes/Report: HEMOGLOBIN A1c 10.8 <5.7 [...] A1c for diagnosis of diabetes for children. LIPID PANEL, STANDARD (7600) Reviewed date:04/01/2025 05:26:13 PM Interpretation: Performing Lab:[facility] [address], [place] Daniel Lozano Notes/Report: CHOLESTEROL, TOTAL 127 <200 [...] equation in the estimation of LDL-C. Ulices SS et al. VERONICA. 2013;310(82): 3368-3404 (http://[email or web address]/faq/FBM511) CHOL/HDLC RATIO 3.0 <5.0 (calc) NON HDL CHOLESTEROL 84 <130 mg/dL (calc) For patients with diabetes plus 1 major ASCVD risk factor, treating to a non-HDL-C goal of <100 mg/dL (LDL-C of <70 mg/dL) is considered a therapeutic option. Microalbumin (In-House) Reviewed date:03/29/2025 04:56:42 PM Interpretation: Performing Lab: Notes/Report: ALB 80 mg/L CRE 200 mg/dL A:C 30-300 mg/g COMPREHENSIVE METABOLIC PANE L (91036) Reviewed date:04/01/2025 05:26:13 PM Interpretation: Performing Lab:[facility], [facility] [facility], [facility] HospitalRdrbTM[address] Daniel Lozano Notes/Report: GLUCOSE 244 65-99 mg/dL [...] 18 10-35 U/L ALT 29 9-46 U/L Reason For Referral Reason Dr. Araiza right knee Referral Organization [facility] Referring Provider First Name Lacy Referring Provider Last Name Barbara Referring Provider [facility] ctice Referred Organization [facility] Referred Address [address] [place] [phone], Referred Provider Specialty Orthopedic S urgery Referral Priority Routine Referral Appointment Date 08/30/2024 Reason Risk Control Consultant at [facility] in 3 weeks or more Diagnosis 1 Type 2 diabetes phil itus without complication, without long-term current use of insulin (E11.9) Referral Organization [facility] Referring Provider First Name Lacy Referring Provider Last Name Barbara Referring Provider [facility] Referred Organization [facility] Referred Address [address] [place] [phone], General Notes Alisha Bender 2024 03:17:39 PM >sent to [facility] to schedule Referral Priority Routine Medications Medication SIG (Take, Route, Frequency, Duration) Notes Start Date End Date Status Advil 200 MG 1 tablet with food o r milk as needed Orally Three times a day prn Active metFORMIN HCl ER (OSM) 500 MG 1 tab(s) orally at night; Duration: 90 days Active Ozempic (0.25 or 0.5 MG/DOSE) 2 MG/3ML 0.25 mg once a week for 4 weeks and then 0.5 mg once a week Subcutaneous once a week; Duration: 28 days 03/31/2025 Active Centrum Men - 1 tab(s) orally once a day Active Lisinopril-hydroCHLOROthia zide 20-12.5 MG 1 tab(s) orally once a day; Duration: 90 days Active Atorvastatin Calcium 20 MG 1 tab(s) oral ly at night; Duration: 90 days Active Omeprazole 20 MG 1 capsule 1/2 to 1 h our before morning meal Orally Once a day; Duration: 30 days 04/27/2025 Active Immunizations Vaccine Route Administration Date Status Comme nts Boostrix IM Intramuscular 03/29/2025 Administered Hep A Adult 2 Dose IM Intramuscular 07/29/2018 Administere d Hep A Adult 2 Dose IM Intramuscular 05/14/2019 Administere d Influenza (Fluzone)--Medicare only IM Intramuscular 06/16/2018 Administered PCV15- Vaxneuvance IM Intramuscular 01/23/2023 Administere d Pneumovax 23 Unknown 07/29/2020 Administered SHINGRIX IM Intramuscular 01/23/2023 Administered SHINGRIX IM Intramuscular 04/29/2023 Administered Social History Tobacco Use: Social History Observation Description Date Details (start date - stop date) Never Smoker NA - NA Smoking: Question Answer Notes Are you a: nonsmoker Problems Problem Type SNOMED Code ICD Code Onset Dates Problem Status W/U Status Risk Notes Problem Morbid obesity (disorder) (571717838) Morbid (severe) obesity due to excess calories (E66.01) Active confirmed Problem Essential hypertension (96987172) Essential (primary) hypertension (I10) Active confirmed Problem Knee joint effusion (397460208) Effusion, right knee (M25.461) Active confirmed Problem Adult health examination (635350956) Encounter for general adult medical examination without abnormal findings (Z00.00) Active confirmed Problem Gastroesophageal reflux disease (155783683) GERD without esophagitis (K21.9) Active confirmed Problem Essential hypertension (12538053) Hypertension, essential (I10) Active confirmed Problem Chronic pain (77211623) Other chronic pain (G89.29) Active confirmed Problem Osteoarthritis of knee (419790869) Primary osteoarthritis of both knees (M17.0) Active confirmed Problem Obese class II (663206056974376) BMI 37.0-37.9, adult (Z68.37) Active confirmed Problem Paresthesia of both hands (883873656) Paresthesia of both hands (R20.2) Active confirmed Problem Benign prostatic hypertrophy with outflow obstruction (848833919) BPH NOS w ur obs/LUTS (N40.1) Active confirmed Problem Type II diabetes mellitus without complication (565296773) Type 2 diabetes mellitus without complication, without long-term current use of insulin (E11.9) Active confirmed Problem Pure hypercholesterolemia (297141916) Pure hypercholesterolemia (E78.00) Active confirmed Problem Arthritis of both knees (4062427974593584) Arthritis of both knees (M17.0) Active confirmed Problem Arthritis of right knee (9745590874417771) Arthritis of right knee (M17.11) Active confirmed Problem Mixed hyperlipidemia (092784188) Mixed dyslipidemia (E78.2) Active confirmed Problem Body mass index 35.0 0 to 39.99 (167078257881065) Body mass index [BMI] 36.0-36.9, adult (Z68.36) Active confirmed Problem 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) Active confirmed Vital Signs Heart Rate 108 /min 03/29/2025 Temperature 97.8 degrees Fahrenheit 03/29/2025 Blood pressure diastolic 74 mm Hg 03/29/2025 Height 71.25 in 03/29/2025 Blood pressure systolic 116 mm Hg 03/29/2025 Weight 264.4 lbs 03/29/2025 BMI 36.61 kg/m2 03/29/2025 Encounters Encounter Location Date Provider Diagnosis [facility] [address] [facility] [address] [place] [address] 11/27/2024 Provider Migration Bronchitis J40 [facility] [address] [facility] [address] [place] [address] 08/11/2024 Adonis Besson Effusion, right knee M25.461 and Arthritis of right knee M17.11 [facility] [address] [address] 10/15/2024 Lacy Jimenez Bronchitis J40 [facility] [address] [facility] [address] [place] [address] 03/29/2025 Radha Yarbrough Type 2 diabetes mellitus without complication, without long-term current use of insulin E11.9 ; Medicare annual wellness visit, subsequent Z00.00 ; Mixed dyslipidemia E78.2 ; Hypertension, essential I10 ; Morbid (severe) obesity due to excess calories E66.01 ; Body mass index [BMI] 36.0-36.9, adult Z68.36 ; Encounter for immunization Z23 and Primary osteoarthritis of both knees M17.0 [facility] [address] [address] 10/12/2024 Lacy Jimenez [facility] [address] [place] [address] 03/03/2025 Lacy Jimenez [facility] [address] [place] [address] 03/31/2025 Radha Yarbrough [facility] [address] [place] [address] 04/01/2025 Radha Yarbrough [facility] [address] [place] [address] 04/04/2025 Lacy Jimenez Type 2 diabetes mellitus without complication, without long-term current use of insulin E11.9 [facility] [address] [place], [place] [address] 04/12/2025 Radha Yarbrough [facility] [address] [place] [address] 04/27/2025 Radha Yarbrough Assessments Encounter Date Diagnosis (ICD Code) Assessment Notes Treatment Notes Treatment Clinical Notes Section Notes 08/11/2024 Effusion, right knee (ICD-10 - M25.461) Performed bedside drainage in clinc today with ~ 20 cc serous joint fuild remvoed. Tolerated procedure well. Will refer to Orthopedics in the new year for consideration of periodic steroid injections vs gel injections, etc. 08/11/2024 Arthritis of right knee (ICD-10 - M17.11) Given recurrent effusions and swelling patient exam consistent with arthritis although he has fairly minimal pain. I think orthopedic evaluation would be indicated and we have made this referral. 10/15/2024 Bronchitis (ICD-10 - J40) Discussed the etiology and expected course of bronchitis. Discussed the rationale for antibiotics and steroid use and the importance of completing the prescription as prescribed. Discussed supportive care. Discussed the signs and symptoms of worsening infection/respir atory distress that may indicate need for reassessment in clinic/ED. 11/27/2024 Bronchitis (ICD-10 - J40) 03/29/2025 Type 2 diabetes mellitus without complication, without long-term current use of insulin (ICD-10 - E11.9) Repeat A1C today, consider GLP1I for better control, renal protection. Continue metformin, ACEI, Statin therapy and encouraged annual eye exam 03/29/2025 Medicare annual wellness visit, subsequent (ICD-10 - Z00.00) update vaccinations as noted, discussed importance of weight loss. no cognitive or mood concerns. 04/04/2025 Type 2 diabetes mellitus without complication, without long-term current use of insulin (ICD-10 - E11.9) 03/29/2025 Mixed dyslipidemia (ICD-10 - E78.2) tolerating [...] arthritis pain as well Plan Of Treatment Pending Test Test Name Order Date Dietary Consult 04/04/2025 C-CMP 02/10/2018 C-LIPID PANEL 02/10/2018 C-HGBA1C 02/10/2018 M-Prostate Specific Ag Screen 02/10/2021 Next Appt Details Provider Name:Radha Conway ce, 05/09/2025 08:15:00 AM, [address] [facility], [address], [place], [address], Insurance Providers Payer Name Payer Address Payer Phone Subscriber Number Group Number Insured Name Patient Relationship to Insured Coverage Start Date Coverage End Date [employer] MEDICARE [address] [address] [place] [address] [phone] [id number] Sridhar Acosta Self - patient is the insured Medications Administered Medication Instructions Date of Administration Dosage Notes Dexamethasone 4mg Injection 10/15/2024 4 mg Triamcinolone Acetonide 40mg Injection 01/25/2020 2 mL right knee, intra-articular Medical (General) History Medical History History ICD Code HTN Type 2 diabetes mellitus, started metfor min 01/2023 Mild hyperlipidemia Surgical History Surgery Date(Month/Year) Tonsillectomy 1960 Left neck lesion removal-savi (Parotid ) 01/2015 Hospitalization History Reason Date(Month/Year) Tonsillectomy 1959
== END 2025-04-28 23:59 | disposition home or self-care (01) ==
LOC: DIETICIAN 12:44
PROVIDERS: PCP Internal Medicine Adolescent Medicine; Visit Provider Nurse Practitioner Family
DX: E11.9 Type 2 diabetes mellitus without complications (principal)
CPT/HCPCS: 97802